=== PATIENT | male | born 1970 | race Caucasian/White ===

== ENCOUNTER 2022-06-11 08:34 | Emergency (ER) | payer OTHER ==
[2022-06-11 08:59] VITALS: BP 145/113; PULSE 106; O2SAT 97
--- NOTE | 2022-06-11 09:24 | ERPHSYRPT ---
- History of Present Illness Time Seen by Provider: 06/11/22 09:20 Source: patient Exam Limitations: no limitations Patient Subjective Stated Complaint: PT HERE FOR CONSTIPATION SINCE MONDAY Triage Nursing Assessment: PT ALERT, WALKED IN, RESP EASY, FACE MASK IN PLACE, ABD DISTENDED AND FIRM , HYPO ACTIVE BS HEARD Physician History: Patient is 51-year-old male with significant past medical history of hyperlipidemia started having a constipation problem for last 3 to 4 days has taken almost 15-20 laxative in last 3 days without any help so he came to the emergency room. He denies any nausea or vomiting. While he came to the emergency room he has urge for bowel movement but he has a very little came out. He denies any fever chills. Patient states that he never have this type of problem before. He has not taken any new medications recently. Timing/Duration: day(s) (3-4 days) Severity: moderate Allergies/Adverse Reactions: No Known Drug Allergies Allergy (Unverified 06/11/22 08:59) Home Medications: Unobtainable 06/11/22 [History] Hx Tetanus, Diphtheria Vaccination/Date Given: No Hx Influenza Vaccination/Date Given: No Hx Pneumococcal Vaccination/Date Given: No Immunizations Up to Date: Yes Travel Risk - International Travel Have you traveled outside of the country in past 3 weeks: No - Coronavirus Screening Are you exhibiting any of the following symptoms?: No Close contact with a COVID-19 positive Pt in past 14-21 Days: No - Vaccine Status Have you recieved a Covid-19 vaccination: No - Review of Systems Constitutional: No Fever, No Chills Eyes: No Symptoms Ears, Nose, & Throat: No Symptoms Respiratory: No Cough, No Dyspnea Cardiac: No Chest Pain, No Edema, No Syncope Abdominal/Gastrointestinal: Constipation, No Abdominal Pain, No Nausea, No Vomiting, No Diarrhea Genitourinary Symptoms: No Dysuria Musculoskeletal: No Back Pain, No Neck Pain Skin: No Rash Neurological: No Dizziness, No Focal Weakness, No Sensory Changes Psychological: No Symptoms Endocrine: No Symptoms All Other Systems: Reviewed and Negative - Past Medical History Pertinent Past Medical History: No Cardiac History: High Cholesterol - Past Surgical History Past Surgical History: Yes Other Surgical History: CARPAL TUNNER - Social History Smoking Status: Never smoker Exposure to second hand smoke: No Drug Use: none Patient Lives Alone: No - Nursing Vital Signs Nursing Vital Signs: Initial Vital Signs Temperature 97 F 06/11/22 08:57 Pulse Rate 106 H 06/11/22 08:57 Respiratory Rate 18 06/11/22 08:57 Blood Pressure 145/113 06/11/22 08:57 O2 Sat by Pulse Oximetry 97 06/11/22 08:57 Pain Scale Pain Intensity 10 - Physical Exam General Appearance: no apparent distress, alert Eye Exam: PERRL/EOMI, eyes nml inspection Ears, Nose, Throat Exam: normal ENT inspection, TMs normal, pharynx normal, moist mucous membranes Neck Exam: normal inspection, non-tender, supple, full range of motion Respiratory Exam: normal breath sounds, lungs clear, No respiratory distress Cardiovascular Exam: regular rate/rhythm, normal heart sounds, normal peripheral pulses Gastrointestinal/Abdomen Exam: soft, normal bowel sounds, No tenderness, No mass Back Exam: normal inspection, normal range of motion, No CVA tenderness, No vertebral tenderness Extremity Exam: normal inspection, normal range of motion, pelvis stable Neurologic Exam: alert, oriented x 3, cooperative, normal mood/affect, nml cerebellar function, nml station & gait, sensation nml, No motor deficits Skin Exam: normal color, warm, dry, No rash Lymphatic Exam: No adenopathy SpO2: 97 - Course Nursing assessment & vital signs reviewed: Yes - Radiology Exams Abdomen X-ray Interpretation: Reviewed by me Ordered Tests: Active Orders 24 hr Category Date Time Status Enema STAT Care 06/11/22 09:15 Active OBSTR/ACUTE ABDOMEN SERIES Stat Exams 06/11/22 09:16 Taken Medication Summary Generic Name Dose Route Start Last Admin Trade Name Adam PRN Reason Stop Dose Admin Polyethylene Glycol/Electrolytes 4,000 ml 06/11/22 14:00 06/11/22 11:17 Sod Sulf/Sod/Nahco3/Kcl/Peg's 4000 Ml Bottle PO 06/11/22 14:01 4,000 ml ONCE@1400 ONE Administration Medical Desision Making - Independent Historian Additional History obtained from: Family - Discussion of managment Agreed on:: Treatment plan, need for follow-up - Diagnostic Testing Radiological Interpretation: Interpreted by me, Reviewed by me - Risk of complications Low Risk: Low risk of morbidity from additional dx testing or treatment - Departure Departure Disposition: Home Clinical Impression: Constipation by delayed colonic transit Condition: Stable Critical Care Time: No Referrals: ELIZ BECERRA NP [Primary Care Provider] - Follow up/PCP as directed Instructions: Constipation, Adult (DC) Additional Instructions: Discharge/Care Plan AILYN ORTIZ was seen on 06/11/22 in the Emergency Room. The patient was counseled regarding Diagnosis,Lab results, Imaging studies, need for follow up and when to return to the Emergency Room. Prescriptions given: Discharge Note I have spoken with the patient and/or caregivers. I have explained the patient's condition, diagnosis and treatment plan based on the information available to me at this time. I have answered the patient's and/or caregiver's questions and addressed any concerns. The patient and/or caregivers have as good understanding of the patient's diagnosis, condition and treatment plan as can be expected at this point. The vital signs have been stable. The patient's condition is stable and appropriate for discharge from the emergency department. The patient will pursue further outpatient evaluation with the primary care physician or other designated or consulting physician as outlined in the discharge instructions. The patient and/or caregivers are agreeable to this plan of care and follow-up instructions have been explained in detail. The patient and/or caregivers have received these instruction. The patient/and or caregivers are aware that any significant change in condition or worsening of symptoms should prompt an immediate return to this or the closest emergency department or call 911. AILYN ORTIZ was seen on 06/11/22 n the Emergency Room. At that time you were treated for an emergent condition, during your visit Laboratory, Radiology and/or other procedures may have been ordered. It is very important that you follow-up with your Primary Care Physician ELIZ BECERRA NP within the next 24-48 hours to review your Emergency Room visit and the final results of testing that was ordered. Some test results such as Urine Cultures, Blood Cultures, and other cultures if ordered will not be finalized for 24-48 hours. If you do not have a Primary Care Provider please call the medical records department at [phone] ext [phone] to obtain a copy of your results or you may sign into our patient portal to obtain these results by visiting us @ [email or web address] and completing the following steps: 1. Click on the Patient Portal link 2. Click the Patient Self Enrollment Link to complete the enrollment form and entering your 3. Once the enrollment form is completed you will receive an email with a temporary ID and password at the email address you provided. 4. Next choose a user name and password. Your user name must be at least 4 characters long and your password must be at least 4 characters long. 5. Choose a security question from the list and provide your answer to the question. If you already have signed into the Health Portal you may access your Health Care Information 14/11 by the following steps: 1. Login to our website @ [email or web address] 2. Enter your original user name and password. FAQS The [facility] Health Portal is an online tool that contains your Lab Results, Radiology Reports, Visit History, Discharge Instructions and Health Summary Lab and Radiology Results will not be available for 72 hours on the portal. The Portal is a secure site, passwords are encryted and URLs are re-written so they cannot be copied and pasted. You and authorized family members are the only ones who can access your Portal. Also there is a timeout feature that protects your information if you leave the Portal page open. If you have technical difficulty please use the Contact Us link on the page this will allow you to submit any questions you have regarding the Portal or you may contact the Medical Record Department at [phone] ext [phone]. Take Miralax two times a day till diarrhea.
[2022-06-11] MEDS ORDERED: Golytely Solution 4000 ML PO ONE (14:00)
--- NOTE | 2022-06-11 20:16 | XRAY ---
Indication: Abdomen pain. Constipation. Comparison: None 2 view abdomen nonacute and nonobstructed. Solid organs unremarkable. Osseous structures intact with moderate/advanced degenerative changes both hips with left hip heterotopic ossification. Single frontal chest demonstrates normal heart, lungs, and bony thorax. Impression: Nonacute and nonobstructed abdomen with chronic bony findings. Normal one view chest.
== END 2022-06-11 11:32 | disposition home or self-care (01) ==
LOC: ED 08:34
DX: K59.01 Slow transit constipation (principal); E78.5 Hyperlipidemia, unspecified; Z28.310 Unvaccinated for COVID-19
CPT/HCPCS: 74022; 99283; A9270-GY

== ENCOUNTER 2022-06-12 08:25 | Inpatient (IN) | payer OTHER ==
--- NOTE | 2022-06-12 09:15 | ERPHSYRPT ---
- History of Present Illness Historian: patient, other () Patient Subjective Stated Complaint: constipation x 4 days Triage Nursing Assessment: Pt brought to the ER by his cousin, vitals wnl, rates abdominal pain as 6/10, pt was here yesterday and received an enema and a bottle of golytle and has had minimal results, states that it doesn't feel as tight but he hasn't had a solid bowel movement, pulses normal, skin n/w/d, doesn't appear to be in any distress Physician History: 51 yo wm w supra-pubic pain x3 days. Pain is sharp and worse when sitting up. He has not had a BM x 4 days and was seen in the ER w an enema. Pt has had nausea wo vomiting/diarrhea/melena/hematochezia/dysuria/hematuria/chest pain/dyspnea. He has had no abdominal surgeries. Pain is 7/10. Timing/Duration: other (4 days) Activities at Onset: rest Quality: sharpness Abdominal Pain Onset Location: suprapubic Pain Radiation: no radiation Severity of Pain-Max: severe Severity of Pain-Current: moderate Modifying Factors: Improves With: movement Associated Symptoms: denies symptoms Previous symptoms: no prior history Allergies/Adverse Reactions: No Known Drug Allergies Allergy (Verified 06/12/22 08:43) Home Medications: Unobtainable 06/11/22 [History] Hx Tetanus, Diphtheria Vaccination/Date Given: No Hx Influenza Vaccination/Date Given: No Hx Pneumococcal Vaccination/Date Given: No Travel Risk - International Travel Have you traveled outside of the country in past 3 weeks: No - Coronavirus Screening Are you exhibiting any of the following symptoms?: No - Vaccine Status Have you recieved a Covid-19 vaccination: No - Review of Systems Constitutional: No Symptoms Eyes: No Symptoms Ears, Nose, & Throat: No Symptoms Respiratory: No Symptoms Cardiac: No Symptoms Abdominal/Gastrointestinal: No Symptoms, Abdominal Pain, Constipation Genitourinary Symptoms: No Symptoms Musculoskeletal: No Symptoms Skin: No Symptoms Neurological: No Symptoms Psychological: No Symptoms Endocrine: No Symptoms Hematologic/Lymphatic: No Symptoms Immunological/Allergic: No Symptoms - Past Medical History Pertinent Past Medical History: Yes Cardiac History: High Cholesterol - Past Surgical History Past Surgical History: Yes Other Surgical History: CARPAL TUNNER - Social History Smoking Status: Never smoker Exposure to second hand smoke: No Drug Use: none Patient Lives Alone: No - Nursing Vital Signs Nursing Vital Signs: Initial Vital Signs Temperature 96.7 F 06/12/22 08:34 Pulse Rate 85 06/12/22 08:34 Blood Pressure 136/86 06/12/22 08:34 O2 Sat by Pulse Oximetry 95 06/12/22 08:34 Pain Scale Pain Intensity 6 Hypertensive - Physical Exam General Appearance: no apparent distress Eye Exam: PERRL/EOMI, eyes nml inspection Ears, Nose, Throat Exam: normal ENT inspection, TMs normal, pharynx normal, moist mucous membranes Neck Exam: normal inspection, non-tender, supple, full range of motion, No meningismus, No mass, No Brudzinski, No Kernig's Respiratory Exam: normal breath sounds, lungs clear, airway intact Cardiovascular Exam: regular rate/rhythm, normal heart sounds, normal peripheral pulses, capillary refill <2 sec, No murmur Gastrointestinal/Abdomen Exam: normal bowel sounds, tenderness (TTP supra-pubic area moderately/No guarding or rebound) Back Exam: normal inspection, normal range of motion, No CVA tenderness, No vertebral tenderness Extremity Exam: normal inspection, normal range of motion Neurologic Exam: alert, oriented x 3, cooperative, speech language assistant II-XII nml as tested, normal mood/affect, nml cerebellar function, nml station & gait, sensation nml Skin Exam: normal color, warm Lymphatic Exam: No adenopathy SpO2 Interpretation: normal SpO2: 95 O2 Delivery: Room Air - Course Nursing assessment & vital signs reviewed: Yes - CT Exams Abdomen/Pelvis CT Interpretation: Tele-radiologist Report (Appendicitis w periappendiceal abscess) Ordered Tests: Active Orders 24 hr Category Date Time Status Bedrest ROUTINE Activity 06/12/22 12:44 Active Code Status Order ROUTINE Care 06/12/22 12:43 Active IV Care Q6H Care 06/12/22 12:43 Active Intake and Output Q12H Care 06/12/22 12:[address] in Observation ROUTINE Care 06/12/22 12:43 Active Vital Signs Q4H Care 06/12/22 12:43 Active Consult Surgery ROUTINE Cons 06/12/22 12:43 Completed NPO Diet 06/12/22 12:44 Completed ABDOMEN AND PELVIS W CONTRAST [CT] Stat Exams 06/12/22 11:39 Taken AMYLASE Stat Lab 06/12/22 09:15 Completed CBC W DIFF AM.LAB Lab 06/13/22 04:00 Ordered CBC W DIFF Stat Lab 06/12/22 09:15 Completed CMP AM.LAB Lab 06/13/22 04:00 Ordered CMP Stat Lab 06/12/22 09:15 Completed CULTURE,URINE Stat Lab 06/12/22 13:46 Received LIPASE Stat Lab 06/12/22 09:15 Completed TROPONIN Q4H Lab 06/12/22 09:15 Completed UA W/RFX UR CULTURE Stat Lab 06/12/22 13:46 Completed Transfer Order Routine Transfer 06/12/22 Completed Medication Summary Generic Name Dose Route Start Last Admin Trade Name Freq PRN Reason Stop Dose Admin Acetaminophen 650 mg 06/12/22 17:14 Acetaminophen 325 Mg Tablet PO 07/12/22 17:13 Q4H PRN PRN PAIN, FEVER, HEADACHE Hydrocodone Bitart/Acetaminophen 1 tab 06/12/22 17:15 06/12/22 17:18 Hydrocodone/Apap 5/325 1 Tab Tablet PO 06/17/22 17:14 1 tab Q4H PRN PRN Administration PAIN Hydromorphone HCl 1 mg 06/12/22 12:43 Hydromorphone 1 Mg/1ml Inj 1 Mg/Ml Syringe IV 06/17/22 12:42 Q4H PRN PRN PAIN Piperacillin Sod/Tazobactam 100 mls @ 200 mls/hr 06/12/22 18:00 Sod 3.375 gm/ Sodium Chloride IV 06/15/22 17:59 Q6HT TORIN Potassium Chloride/Dextrose/Sod Cl 1,000 mls @ 100 mls/hr 06/12/22 17:30 06/12/22 17:18 D5w/0.45ns W/ 20meq Kcl 1000 Ml IV 07/12/22 17:29 100 mls/hr .Q10H TORIN Administration Cefoxitin Sodium 2 gm in 50 mls @ 100 mls/hr 06/12/22 18:00 Mefoxin 2 Gm Premix IV 06/15/22 17:59 Q6HT TORIN Morphine Sulfate 2 - 4 mg 06/12/22 17:11 Morphine Sulfate 4 Mg/Ml Injection IV 06/17/22 17:10 Q2H PRN PRN PAIN Ondansetron HCl 4 mg 06/12/22 12:43 Ondansetron Hcl 4 Mg/2 Ml Vial IV 07/12/22 12:42 Q6H PRN PRN NAUSEA/VOMITING Ondansetron HCl 4 mg 06/12/22 17:13 Ondansetron Hcl 4 Mg/2 Ml Vial IV 07/12/22 17:12 Q6H PRN PRN NAUSEA/VOMITING Pantoprazole Sodium 40 mg 06/13/22 10:00 Pantoprazole 40 Mg Vial IV 07/13/22 09:59 Q24H10 TORIN Discontinued Medications Generic Name Dose Route Start Last Admin Trade Name Freq PRN Reason Stop Dose Admin Bupivacaine HCl Confirm 06/12/22 14:00 Bupivacaine Hcl 2.5 Mg/Ml 10 Ml Administered 06/12/22 14:01 Dose 10 ml .ROUTE .STK-MED ONE Dexamethasone Sodium Phosphate Confirm 06/12/22 12:52 Dexamethasone Sod Phosphate 4 Mg/Ml Ml Administered 06/12/22 12:53 Dose 8 mg .ROUTE .STK-MED ONE Fentanyl Citrate Confirm 06/12/22 12:52 Fentanyl Citrate 250 Mcg/5 Ml Ampul Administered 06/12/22 12:53 Dose 250 mcg .ROUTE .STK-MED ONE Piperacillin Sod/Tazobactam 100 mls @ 200 mls/hr 06/12/22 12:13 06/12/22 12:20 Sod 4.5 gm/ Sodium Chloride IV 06/12/22 12:42 200 mls/hr STAT ONE Administration Sodium Chloride Confirm 06/12/22 12:18 Sodium Chloride 100ml Mini-Bag Plus Administered 06/12/22 12:19 Dose 100 mls @ ud IV .STK-MED ONE Lactated Ringer's 1,000 mls @ 100 mls/hr 06/12/22 13:00 Lactated Ringers IV 07/12/22 12:59 .Q10H TORIN Acetaminophen Confirm 06/12/22 13:57 Ofirmev Administered 06/12/22 13:58 Dose 100 mls @ ud IV .STK-MED ONE Cefoxitin Sodium Confirm 06/12/22 14:14 Mefoxin 2 Gm Premix Administered 06/12/22 14:15 Dose 2 gm in 50 mls @ ud IV .STK-MED ONE Lactated Ringer's Confirm 06/12/22 13:57 Lactated Ringers Administered 06/12/22 13:58 Dose 1,000 mls @ ud IV .STK-MED ONE Ketorolac Tromethamine Confirm 06/12/22 12:52 Ketorolac Tromethamine 30 Mg/Ml Inj Administered 06/12/22 12:53 Dose 30 mg .ROUTE .STK-MED ONE Lidocaine HCl Confirm 06/12/22 12:52 Lidocaine - Mpf 2% 5 Ml Vial Administered 06/12/22 12:53 Dose 5 ml .ROUTE .STK-MED ONE Metoclopramide HCl Confirm 06/12/22 12:53 Metoclopramide Hcl 10 Mg/2 Ml Vial Administered 06/12/22 12:54 Dose 10 mg .ROUTE .STK-MED ONE Piperacillin Sod/Tazobactam Sod Confirm 06/12/22 12:18 Piperacillin/Tazobactam Sodium 4.5 Gm Vial Administered 06/12/22 12:19 Dose 4.5 gm IV .STK-MED ONE Potassium Chloride 40 meq 06/12/22 10:08 06/12/22 10:12 Potassium Chloride Tab 10 Meq Tab PO 06/12/22 10:09 40 meq STAT ONE Administration Potassium Chloride Confirm 06/12/22 10:11 Potassium Chloride Tab 10 Meq Tab Administered 06/12/22 10:12 Dose 40 meq PO .STK-MED ONE Propofol Confirm 06/12/22 12:52 Propofol 10 Mg/Ml 20ml Vial Administered 06/12/22 12:53 Dose 200 mg IV .STK-MED ONE Rocuronium [place] Confirm 06/12/22 12:52 Rocuronium [place] 100 Mg/10ml Vial Administered 06/12/22 12:53 Dose 50 mg .ROUTE .STK-MED ONE Succinylcholine Chloride Confirm 06/12/22 14:00 Succinylcholine Chloride 200mg/10 Ml Vial Administered 06/12/22 14:01 Dose 100 mg .ROUTE .STK-MED ONE Sugammadex Sodium Confirm 06/12/22 12:52 Sugammadex Sodium 200 Mg/2 Ml Vial Administered 06/12/22 12:53 Dose 200 mg IV .STK-MED ONE Lab/Rad Data: Laboratory Result Diagrams 06/12/22 09:15 06/12/22 09:15 Laboratory Results 06/12/22 06/12/22 06/12/22 Range/Units 13:46 12:53 09:15 WBC (4.0-10.5) x10^3/uL RBC (4.1-5.6) x10^6/uL Hgb (12.5-18.0) g/dL Hct (42-50) % MCV (78-100) fL MCH (26-32) pg MCHC (32-36) g/dL RDW (11.5-14.0) % Plt Count (150-450) x10^3/uL MPV (7.5-11.0) fL Gran % (36.0-66.0) % Immature Gran % (Auto) (0.00-0.4) % Nucleat RBC Rel Count (0.00-0.1) % Eos # (Auto) (0-0.5) x10^3/uL Immature Gran # (Auto) (0.00-0.03) x10^3u/L Absolute Lymphs (auto) (1.0-4.6) x10^3/uL Absolute Monos (auto) (0.0-1.3) x10^3/uL Absolute Nucleated RBC (0.00-0.01) x10^3u/L Lymphocytes % (24.0-44.0) % Monocytes % (0.0-12.0) % Eosinophils % (0.00-5.0) % Basophils % (0.0-0.4) % Absolute Granulocytes (1.4-6.9) x10^3/uL Basophils # (0-0.4) x10^3/uL Sodium (137-145) mmol/L Potassium (3.5-5.1) mmol/L Chloride (98-107) mmol/L Carbon Dioxide (22-30) mmol/L Anion Gap (5-15) MEQ/L BUN (9-20) mg/dL Creatinine (0.66-1.25) mg/dL Estimated GFR ML/MIN Glucose (74-106) mg/dL Calcium (8.4-10.2) mg/dL Total Bilirubin (0.2-1.3) mg/dL AST (17-59) U/L ALT (0-50) U/L Alkaline Phosphatase (38-126) U/L Troponin I < 0.012 (0.000-0.034) ng/mL Serum Total Protein (6.3-8.2) g/dL Albumin (3.5-5.0) g/dL Amylase (30-110) U/L Lipase (23-300) U/L Urine Color Yellow (Yellow) Urine Appearance Clear (Clear) Urine pH 5.0 (4.6-8.0) Ur Specific [place] >=1.030 A (1.005-1.030) Urine Protein 100 A (Negative) Urine Glucose (UA) Negative (Negative) mg/dL Urine Ketones Negative (Negative) Urine Blood Moderate A (Negative) Urine Nitrite Negative (Negative) Urine Bilirubin Negative (Negative) Urine Urobilinogen 0.2 (0.2) mg/dL Ur Leukocyte Esterase Negative (Negative) U Hyaline Cast (Auto) NONE SEEN (0-2) /LPF Urine Microscopic RBC 3-5 (0-5) /HPF Urine Microscopic WBC 0-2 (0-5) /HPF Ur Epithelial Cells None Seen (None Seen) /HPF Urine Bacteria None Seen (None Seen) /HPF Urine Culture Reflexed YES (NO) Influenza Type A Ag NEGATIVE (NEGATIVE) Influenza Type B Ag NEGATIVE (NEGATIVE) RSV (PCR) NEGATIVE (Negative) SARS-CoV-2 (PCR) NEGATIVE (NEGATIVE) Slides for Path Review 06/12/22 06/12/22 Range/Units 09:15 09:15 WBC 16.7 H (4.0-10.5) x10^3/uL RBC 4.64 (4.1-5.6) x10^6/uL Hgb 14.9 (12.5-18.0) g/dL Hct 42.3 (42-50) % MCV 91.2 (78-100) fL MCH 32.1 H (26-32) pg MCHC 35.2 (32-36) g/dL RDW 12.4 (11.5-14.0) % Plt Count 262 (150-450) x10^3/uL MPV 9.4 (7.5-11.0) fL Gran % 79.3 H (36.0-66.0) % Immature Gran % (Auto) 0.6 H (0.00-0.4) % Nucleat RBC Rel Count 0.0 (0.00-0.1) % Eos # (Auto) 0.04 (0-0.5) x10^3/uL Immature Gran # (Auto) 0.10 H (0.00-0.03) x10^3u/L Absolute Lymphs (auto) 1.17 (1.0-4.6) x10^3/uL Absolute Monos (auto) 2.12 H (0.0-1.3) x10^3/uL Absolute Nucleated RBC 0.00 (0.00-0.01) x10^3u/L Lymphocytes % 7.0 L (24.0-44.0) % Monocytes % 12.7 H (0.0-12.0) % Eosinophils % 0.2 (0.00-5.0) % Basophils % 0.2 (0.0-0.4) % Absolute Granulocytes 13.20 H (1.4-6.9) x10^3/uL Basophils # 0.03 (0-0.4) x10^3/uL Sodium 133 L (137-145) mmol/L Potassium 2.9 L* (3.5-5.1) mmol/L Chloride 96 L (98-107) mmol/L Carbon Dioxide 25 (22-30) mmol/L Anion Gap 15.3 H (5-15) MEQ/L BUN 28 H (9-20) mg/dL Creatinine 1.02 (0.66-1.25) mg/dL Estimated GFR > 60.0 ML/MIN Glucose 143 H (74-106) mg/dL Calcium 9.6 (8.4-10.2) mg/dL Total Bilirubin 1.20 (0.2-1.3) mg/dL AST 27 (17-59) U/L ALT 37 (0-50) U/L Alkaline Phosphatase 74 (38-126) U/L Troponin I (0.000-0.034) ng/mL Serum Total Protein 8.3 H (6.3-8.2) g/dL Albumin 4.4 (3.5-5.0) g/dL Amylase 43 (30-110) U/L Lipase 38 (23-300) U/L Urine Color (Yellow) Urine Appearance (Clear) Urine pH (4.6-8.0) Ur Specific [place] (1.005-1.030) Urine Protein (Negative) Urine Glucose (UA) (Negative) mg/dL Urine Ketones (Negative) Urine Blood (Negative) Urine Nitrite (Negative) Urine Bilirubin (Negative) Urine Urobilinogen (0.2) mg/dL Ur Leukocyte Esterase (Negative) U Hyaline Cast (Auto) (0-2) /LPF Urine Microscopic RBC (0-5) /HPF Urine Microscopic WBC (0-5) /HPF Ur Epithelial Cells (None Seen) /HPF Urine Bacteria (None Seen) /HPF Urine Culture Reflexed (NO) Influenza Type A Ag (NEGATIVE) Influenza Type B Ag (NEGATIVE) RSV (PCR) (Negative) SARS-CoV-2 (PCR) (NEGATIVE) Slides for Path Review YES - Progress Progress Note: 06/12/22 12:16 Pt refused all pain meds Nursing note and vital signs reviewed No food or housing insecurities notes Pt is a full code All lab and CT results reviewed and shared w pt Zosyn 4.5gms IV 06/12/22 12:48 Dr. Siddharth Laird to take to surgery, wants Dr. Munoz to admit. Dr. Munoz ok w admit Counseled pt/family regarding: lab results, diagnosis, rad results - Departure Departure Disposition: Observation Clinical Impression: Appendicitis with peritoneal abscess Condition: Stable Critical Care Time: Yes Critical Care Time(excluding separately billable procedures): Critical 30-74 mins
[2022-06-12 09:25] LABS: BASOPHIL % 0.2 % (0.0-0.4); Basophil (Absolute #) 0.03 x10^3/uL (0-0.4); Eosinophil % 0.2 % (0.00-5.0); Eosinophil (Absolute #) 0.04 x10^3/uL (0-0.5); Hematocrit 42.3 % (42-50); Hemoglobin 14.9 g/dL (12.5-18.0); IMMATURE GRAN % 0.6 % (0.00-0.4); Lymphocyte (Absolute #) 1.17 x10^3/uL (1.0-4.6); Mean Cell Volume 91.2 fL (78-100); Mean Corpuscular Hemoglobin 32.1 pg (26-32); Mean Corpuscular Hgb Concent. 35.2 g/dL (32-36); Mean Platelet Volume 9.4 fL (7.5-11.0); Monocyte (Absolute #) 2.12 x10^3/uL (0.0-1.3); Monocytes % 12.7 % (0.0-12.0); Neutrophil % 79.3 % (36.0-66.0); Platelet Count 262 x10^3/uL (150-450); Red Blood Count 4.64 x10^6/uL (4.1-5.6); Red Cell Distribution Width 12.4 % (11.5-14.0); White Blood Count 16.7 x10^3/uL (4.0-10.5)
[2022-06-12 10:01] LABS: ALBUMIN 4.4 g/dL (3.5-5.0); ALKALINE PHOSPHATASE 74 U/L (38-126); AMYLASE 43 U/L (30-110); ANION GAP 15.3 MEQ/L (5-15); BLOOD UREA NITROGEN 28 mg/dL (9-20); CHLORIDE 96 mmol/L (98-107); Calcium 9.6 mg/dL (8.4-10.2); Carbon Dioxide 25 mmol/L (22-30); Creatinine 1 1.02 mg/dL (0.66-1.25); EST GLOMERULAR FILTRATION RATE > 60.0 ML/MIN; Glucose 143 mg/dL (74-106); LIPASE 38 U/L (23-300); SGOT/AST 27 U/L (17-59); SGPT/ALT 37 U/L (0-50); SODIUM 133 mmol/L (137-145); Total Protein 8.3 g/dL (6.3-8.2)
[2022-06-12 10:03] LABS: Potassium 2.9 mmol/L (3.5-5.1)
[2022-06-12] MEDS ORDERED: Klor Con PO ONE ×2 (10:08→10:11)
[2022-06-12] MEDS ORDERED: PIPERACILLIN/TAZOBACTAM 4.5 GM in Sodium Chloride 100ML MINI-BAG PLUS 100 ML IV ONE (12:13)
[2022-06-12] MEDS ORDERED: Sodium Chloride 100ML MINI-BAG PLUS 100 ML IV ONE ×3 (12:18→23:46)
[2022-06-12] MEDS ORDERED: PIPERACILLIN/TAZOBACTAM IV ONE ×4 (12:18→23:45)
[2022-06-12] MEDS ORDERED: Zofran 4 MG/2 ML VIAL IV PRN (12:43)
[2022-06-12] MEDS ORDERED: Hydromorphone 1 mg/ml Injection IV PRN (12:43)
[2022-06-12] MEDS ORDERED: Zemuron 100 MG/10 ML ONE (12:52)
[2022-06-12] MEDS ORDERED: DIPRIVAN 200 MG/20 ML IV ONE (12:52)
[2022-06-12] MEDS ORDERED: Xylocaine-Mpf 2% 5 Ml Vial ONE (12:52)
[2022-06-12] MEDS ORDERED: BRIDION 200MG/2ML IV ONE (12:52)
[2022-06-12] MEDS ORDERED: Decadron 4 MG INJ ONE (12:52)
[2022-06-12] MEDS ORDERED: SUBLIMAZE 250 MCG/5 ML ONE (12:52)
[2022-06-12] MEDS ORDERED: TORAdol 30 mg Injection ONE (12:52)
[2022-06-12] MEDS ORDERED: Reglan 10 MG/2 ML ONE (12:53)
[2022-06-12] MEDS ORDERED: Lactated Ringers 1,000 ML IV SCH (13:00)
[2022-06-12 13:37] LABS: INFLUENZA A NEGATIVE (NEGATIVE); INFLUENZA B NEGATIVE (NEGATIVE); RESPIRATORY SYNCTIAL VIRUS NEGATIVE (Negative); SARS-CoV-2 Xpert Express NEGATIVE (NEGATIVE)
[2022-06-12] MEDS ORDERED: Lactated Ringers 1,000 ML IV ONE (13:57)
[2022-06-12] MEDS ORDERED: OFIRMEV 100 ML IV ONE (13:57)
[2022-06-12] MEDS ORDERED: Sensorcaine 0.25% 10 ML ONE (14:00)
[2022-06-12] MEDS ORDERED: Quelicin Fliptop 200 MG/10 ML ONE (14:00)
[2022-06-12] MEDS ORDERED: MEFOXIN 2 GM PREMIX** 2 GM/50 ML ML IV ONE (14:14)
[2022-06-12 15:11] LABS: Slide Review 1 YES
[2022-06-12 15:20] LABS: ADD URINE CULTURE? YES (NO); Appearance Clear (Clear); Bacteria None Seen /HPF (None Seen); Bilirubin Negative (Negative); Blood Moderate (Negative); Epithelial Cells None Seen /HPF (None Seen); Glucose, Urine Negative (Negative); Hyaline Casts NONE SEEN /LPF (0-2); Ketones Negative (Negative); Leukocyte Esterase Negative (Negative); Nitrite Negative (Negative); Protein,Urine Dip 100 (Negative); Specific Gravity >=1.030 (1.005-1.030); Urobilinogen 0.2 mg/dL (0.2); WBC 0-2 /HPF (0-5)
--- NOTE | 2022-06-12 17:08 | PCM.HP ---
History of Present Illness - Chief Complaint Chief Complaint: POST APPENDECTOMY History of Present Illness: is a 51 year old male at the [facility] who presented to ER with constipation and low abdominal pain. ER evaluation revealed appendicitis and patient was taken to OR by Dr Lorne Laird. Post Op Dg - appendicitis with peritoneal abscess. Patient is stable post op admitted to [facility]. - Review of Systems Eyes: No Symptoms Ears, Nose, & Throat: No Symptoms Respiratory: No Symptoms Cardiac: No Symptoms Abdominal/Gastrointestinal: Abdominal Pain, Constipation Genitourinary Symptoms: No Symptoms Musculoskeletal: No Symptoms Skin: No Symptoms Neurological: No Symptoms Psychological: No Symptoms Endocrine: No Symptoms Hematologic/Lymphatic: No Symptoms Medications & Allergies Home Medications: Home Medication List Alfuzosin HCl [Alfuzosin HCl ER] 10 mg PO DINNER 06/12/22 [History Confirmed 06/12/22] Fenofibrate Nanocrystallized [Fenofibrate] 145 mg PO DAILY 06/12/22 [History Confirmed 06/12/22] Gabapentin [Neurontin ] 300 mg PO HS 06/12/22 [History Confirmed 06/12/22] Meloxicam 15 mg [Meloxicam 15 MG] 15 mg PO DAILY 06/12/22 [History Confirmed 06/12/22] [place]-3S/Dha/Epa/Fish Oil [Fish Oil Dr 1,000 mg Softgel] 1 each PO DAILY 06/12/22 [History Confirmed 06/12/22] Acetaminophen 325 mg [Tylenol 325 mg] 650 mg PO Q4H PRN PRN tablet 06/17/22 [Rx] Allergies/Adverse Reactions: Allergies Allergy/AdvReac Type Severity Reaction Status Date / Time No Known Drug Allergies Allergy Verified 06/12/22 08:43 - Past Medical History Past Medical History: Yes Neurological History: No Pertinent History ENT History: No Pertinent History Cardiac History: High Cholesterol Respiratory History: No Pertinent History Endocrine Medical History: No Pertinent History Musculoskelatal History: No Pertinent History GI Medical History: No Pertinent History History: No Pertinent History Pyscho-Social History: No Pertinent History Male Reproductive Disorders: Prostate Problems - Past Surgical History Past Surgical History: Yes Neuro Surgical History: No Pertinent History Cardiac History: No Pertinent History Respiratory Surgery: No Pertinent History GI Surgical History: No Pertinent History Genitourinary Surgical Hx: No Pertinent History Musculskeletal Surgical Hx: No Pertinent History Male Surgical History: No Pertinent History Other Surgical History: CARPAL TUNNEL - Social History Smoking Status: Never smoker Exposure to second hand smoke: No Alcohol: Occasionally Drug Use: none - Physical Exam Vital Signs: Vital Signs - 24 hr Temp Pulse Resp BP Pulse Ox 06/12/22 15:46 97.7 F 69 18 149/80 92 L 06/12/22 12:49 95 06/12/22 12:23 96.7 F 90 133/92 97 06/12/22 12:10 84 133/92 97 06/12/22 10:06 85 134/89 95 06/12/22 08:34 96.7 F 85 136/86 95 General Appearance: no apparent distress (post op pain controlled) Neurologic Exam: alert, oriented x 3, cooperative, normal mood/affect Eye Exam: eyes nml inspection Ears, Nose, Throat Exam: normal ENT inspection Neck Exam: normal inspection Respiratory Exam: normal breath sounds Cardiovascular Exam: regular rate/rhythm Gastrointestinal/Abdomen Exam: other ( post op dressing dry ,drain in place sanguinous fluid) Results - Labs Lab/Micro Results: Lab Results-Last 24 Hours 06/12/22 06/12/22 06/12/22 Range/Units 09:15 09:15 09:15 WBC 16.7 H (4.0-10.5) x10^3/uL RBC 4.64 (4.1-5.6) x10^6/uL Hgb 14.9 (12.5-18.0) g/dL Hct 42.3 (42-50) % MCV 91.2 (78-100) fL MCH 32.1 H (26-32) pg MCHC 35.2 (32-36) g/dL RDW 12.4 (11.5-14.0) % Plt Count 262 (150-450) x10^3/uL MPV 9.4 (7.5-11.0) fL Gran % 79.3 H (36.0-66.0) % Immature Gran % (Auto) 0.6 H (0.00-0.4) % Nucleat RBC Rel Count 0.0 (0.00-0.1) % Eos # (Auto) 0.04 (0-0.5) x10^3/uL Immature Gran # (Auto) 0.10 H (0.00-0.03) x10^3u/L Absolute Lymphs (auto) 1.17 (1.0-4.6) x10^3/uL Absolute Monos (auto) 2.12 H (0.0-1.3) x10^3/uL Absolute Nucleated RBC 0.00 (0.00-0.01) x10^3u/L Lymphocytes % 7.0 L (24.0-44.0) % Monocytes % 12.7 H (0.0-12.0) % Eosinophils % 0.2 (0.00-5.0) % Basophils % 0.2 (0.0-0.4) % Absolute Granulocytes 13.20 H (1.4-6.9) x10^3/uL Basophils # 0.03 (0-0.4) x10^3/uL Sodium 133 L (137-145) mmol/L Potassium 2.9 L* (3.5-5.1) mmol/L Chloride 96 L (98-107) mmol/L Carbon Dioxide 25 (22-30) mmol/L Anion Gap 15.3 H (5-15) MEQ/L BUN 28 H (9-20) mg/dL Creatinine 1.02 (0.66-1.25) mg/dL Estimated GFR > 60.0 ML/MIN Glucose 143 H (74-106) mg/dL Calcium 9.6 (8.4-10.2) mg/dL Total Bilirubin 1.20 (0.2-1.3) mg/dL AST 27 (17-59) U/L ALT 37 (0-50) U/L Alkaline Phosphatase 74 (38-126) U/L Troponin I < 0.012 (0.000-0.034) ng/mL Serum Total Protein 8.3 H (6.3-8.2) g/dL Albumin 4.4 (3.5-5.0) g/dL Amylase 43 (30-110) U/L Lipase 38 (23-300) U/L Urine Color (Yellow) Urine Appearance (Clear) Urine pH (4.6-8.0) Ur Specific Woodman (1.005-1.030) Urine Protein (Negative) Urine Glucose (UA) (Negative) mg/dL Urine Ketones (Negative) Urine Blood (Negative) Urine Nitrite (Negative) Urine Bilirubin (Negative) Urine Urobilinogen (0.2) mg/dL Ur Leukocyte Esterase (Negative) U Hyaline Cast (Auto) (0-2) /LPF Urine Microscopic RBC (0-5) /HPF Urine Microscopic WBC (0-5) /HPF Ur Epithelial Cells (None Seen) /HPF Urine Bacteria (None Seen) /HPF Urine Culture Reflexed (NO) Influenza Type A Ag (NEGATIVE) Influenza Type B Ag (NEGATIVE) RSV (PCR) (Negative) SARS-CoV-2 (PCR) (NEGATIVE) Slides for Path Review YES 06/12/22 06/12/22 Range/Units 12:53 13:46 WBC (4.0-10.5) x10^3/uL RBC (4.1-5.6) x10^6/uL Hgb (12.5-18.0) g/dL Hct (42-50) % MCV (78-100) fL MCH (26-32) pg MCHC (32-36) g/dL RDW (11.5-14.0) % Plt Count (150-450) x10^3/uL MPV (7.5-11.0) fL Gran % (36.0-66.0) % Immature Gran % (Auto) (0.00-0.4) % Nucleat RBC Rel Count (0.00-0.1) % Eos # (Auto) (0-0.5) x10^3/uL Immature Gran # (Auto) (0.00-0.03) x10^3u/L Absolute Lymphs (auto) (1.0-4.6) x10^3/uL Absolute Monos (auto) (0.0-1.3) x10^3/uL Absolute Nucleated RBC (0.00-0.01) x10^3u/L Lymphocytes % (24.0-44.0) % Monocytes % (0.0-12.0) % Eosinophils % (0.00-5.0) % Basophils % (0.0-0.4) % Absolute Granulocytes (1.4-6.9) x10^3/uL Basophils # (0-0.4) x10^3/uL Sodium (137-145) mmol/L Potassium (3.5-5.1) mmol/L Chloride (98-107) mmol/L Carbon Dioxide (22-30) mmol/L Anion Gap (5-15) MEQ/L BUN (9-20) mg/dL Creatinine (0.66-1.25) mg/dL Estimated GFR ML/MIN Glucose (74-106) mg/dL Calcium (8.4-10.2) mg/dL Total Bilirubin (0.2-1.3) mg/dL AST (17-59) U/L ALT (0-50) U/L Alkaline Phosphatase (38-126) U/L Troponin I (0.000-0.034) ng/mL Serum Total Protein (6.3-8.2) g/dL Albumin (3.5-5.0) g/dL Amylase (30-110) U/L Lipase (23-300) U/L Urine Color Yellow (Yellow) Urine Appearance Clear (Clear) Urine pH 5.0 (4.6-8.0) Ur Specific Woodman >=1.030 A (1.005-1.030) Urine Protein 100 A (Negative) Urine Glucose (UA) Negative (Negative) mg/dL Urine Ketones Negative (Negative) Urine Blood Moderate A (Negative) Urine Nitrite Negative (Negative) Urine Bilirubin Negative (Negative) Urine Urobilinogen 0.2 (0.2) mg/dL Ur Leukocyte Esterase Negative (Negative) U Hyaline Cast (Auto) NONE SEEN (0-2) /LPF Urine Microscopic RBC 3-5 (0-5) /HPF Urine Microscopic WBC 0-2 (0-5) /HPF Ur Epithelial Cells None Seen (None Seen) /HPF Urine Bacteria None Seen (None Seen) /HPF Urine Culture Reflexed YES (NO) Influenza Type A Ag NEGATIVE (NEGATIVE) Influenza Type B Ag NEGATIVE (NEGATIVE) RSV (PCR) NEGATIVE (Negative) SARS-CoV-2 (PCR) NEGATIVE (NEGATIVE) Slides for Path Review - Radiology Impressions Radiology Exams & Impressions: Radiology Procedures Category Date Time Status ABDOMEN AND PELVIS W CONTRAST [CT] Stat Exams 06/12/22 11:39 Taken - Other Procedures and Tests Respiratory Therapy 06/12/22 15:30 Incentive Spirometry UD Assessment/Plan (1) Appendicitis with peritoneal abscess Status: Resolved Assessment & Plan: post op- stable Code(s): K35.33 - ACUTE APPENDICITIS WITH PERF AND LOC PERITONITIS, WITH ABSCS
[2022-06-12] MEDS ORDERED: MORPHINE SULFATE 4 MG INJ IV PRN (17:11)
[2022-06-12] MEDS: NORCO 5/325 MG PO PRN ×2 (17:18→21:39)
[2022-06-12] MEDS: D5W/0.45NS W/ 20mEq KCl 1000 ML 1,000 ML IV SCH (17:18)
[2022-06-12] MEDS: PIPERACILLIN/TAZOBACTAM 3.375 GM in Sodium Chloride 100ML MINI-BAG PLUS 100 ML IV SCH (18:19)
[2022-06-12] MEDS: MEFOXIN 2 GM PREMIX** 2 GM/50 ML ML IV SCH ×2 (19:19→23:50)
--- NOTE | 2022-06-12 19:20 | XRAY ---
Indication: Constipation. Multiple contiguous axial images obtained through the abdomen and pelvis using 80 cc Isovue 370 contrast. Comparison: None Lung bases demonstrates mild bibasilar subsegmental atelectasis/scarring. Heart not enlarged. Noncontrasted stomach and bowel loops appear nonobstructed. Appendix is prominent up to 1.2 cm with periappendiceal stranding favoring acute appendicitis. Small 4.4 x 4.6 cm periappendiceal abscess with tiny free air. Diffuse fatty liver and a few tiny left renal cysts, largest 7 mm. Remaining liver, gallbladder, pancreas, spleen, adrenal glands, kidneys, ureters, bladder, and aorta are unremarkable. No pathologic retroperitoneal lymphadenopathy. Osseous structures intact. Impression: 1. CT findings favor acute appendicitis with periappendiceal abscess and free air. 2. Incidental fatty liver and left renal cysts. Comment: Preliminary interpretation made by [facility]. No critical discrepancy.
[2022-06-12] MEDS ORDERED: NEURONTIN PO ONE (22:00)
[2022-06-13] MEDS: PIPERACILLIN/TAZOBACTAM 3.375 GM in Sodium Chloride 100ML MINI-BAG PLUS 100 ML IV SCH ×2 (00:24→05:47)
[2022-06-13 04:58] LABS: Hematocrit 40.1 % (42-50); Hemoglobin 13.9 g/dL (12.5-18.0); Mean Cell Volume 92.4 fL (78-100); Mean Corpuscular Hgb Concent. 34.7 g/dL (32-36); Mean Platelet Volume 9.9 fL (7.5-11.0); Platelet Count 252 x10^3/uL (150-450); Red Blood Count 4.34 x10^6/uL (4.1-5.6); Red Cell Distribution Width 12.9 % (11.5-14.0); White Blood Count 13.9 x10^3/uL (4.0-10.5)
[2022-06-13] MEDS ORDERED: PIPERACILLIN/TAZOBACTAM IV ONE (05:06)
[2022-06-13] MEDS ORDERED: Sodium Chloride 100ML MINI-BAG PLUS 100 ML IV ONE (05:07)
[2022-06-13] MEDS: MEFOXIN 2 GM PREMIX** 2 GM/50 ML ML IV SCH ×3 (05:12→18:49)
[2022-06-13] MEDS ORDERED: NORCO 5/325 MG ONE (05:27)
[2022-06-13] MEDS ORDERED: D5W/0.45NS W/ 20mEq KCl 1000 ML 1,000 ML IV ONE (05:29)
[2022-06-13] MEDS: D5W/0.45NS W/ 20mEq KCl 1000 ML 1,000 ML IV SCH ×2 (05:46→16:42)
[2022-06-13] MEDS: NORCO 5/325 MG PO PRN ×4 (05:47→19:48)
[2022-06-13 06:13] LABS: ANION GAP 13.2 MEQ/L (5-15); BLOOD UREA NITROGEN 26 mg/dL (9-20); CHLORIDE 97 mmol/L (98-107); Calcium 8.7 mg/dL (8.4-10.2); Carbon Dioxide 26 mmol/L (22-30); Creatinine 1 0.81 mg/dL (0.66-1.25); EST GLOMERULAR FILTRATION RATE > 60.0 ML/MIN; Glucose 179 mg/dL (74-106); Potassium 3.6 mmol/L (3.5-5.1); SODIUM 133 mmol/L (137-145)
[2022-06-13] MEDS: ENOXAPARIN SODIUM SQ SCH (09:04)
[2022-06-13] MEDS ORDERED: PHARMACY DOSING REQUEST MC ONE (09:41)
[2022-06-13] MEDS ORDERED: PROTONIX 40 MG IV IV SCH (10:00)
--- NOTE | 2022-06-13 10:57 | XRAY ---
Indication: Abdomen pain. Ruptured appendix. Comparison: None KUB demonstrates right lower quadrant VASILE drain. Mild air distended bowel loops throughout presumed postoperative ileus. Solid organs unremarkable. Osseous structures intact with moderate right and advanced left hip degenerative changes.
[2022-06-13] MEDS: Flomax 0.4 MG PO SCH (11:08)
--- NOTE | 2022-06-13 15:17 | OP ---
SURGERY DATE/TIME: 06/12/2022 9866 PREOPERATIVE DIAGNOSIS: Acute appendicitis possible rupture. POSTOPERATIVE DIAGNOSIS: Ruptured appendix with abscess. PROCEDURES: 1) Laparoscopic appendectomy. 2) Laparoscopic evacuation of small pelvic sidewall abscess. SURGEON: Lorne Laird M.D. ANESTHESIA: General. COMPLICATIONS: None. CONDITION: Stable. INDICATION: The patient presents with four day history of appendicitis. DESCRIPTION OF PROCEDURE: Taken to surgery. General anesthetic. Routine prep and drape. Veress needle inserted. Opening pressure 1, insufflating pressure 14. Two - 5's and a 12. The appendix was matted down into the abscess which is into the wall of the right pelvis this was evacuated. It was suctioned and irrigated. There was a 1.5 inch end of the appendix. There was about a mid-section of 1.5 inch that was totally and gangrenous, noted the base about 0.75 cm. The base was stapled off. It was well sealed off. Base of the appendix is taken. Appendix is placed in a bag and removed. The field was generously irrigated. A 10 VASILE was placed in the right gutter in the pelvis this was secured with 2-0 PDS. The field was dry. CO2 exsufflated. Skin closed with 4-0 Vicryl and Steri-Strips. The patient tolerated the procedure satisfactorily.
[2022-06-13] MEDS: Mylicon 80MG PO PRN (15:46)
[2022-06-13] MEDS ORDERED: PATIENT OWN MEDICATION PO SCH (17:00)
[2022-06-13] MEDS ORDERED: NON-FORMULARY ITEM (Alfuzosin Hcl [Alfuzosin Hcl Er] 10 MG Tab.Er.24h) PO SCH (17:00)
[2022-06-13] MEDS ORDERED: NON-FORMULARY ITEM PO SCH (17:00)
[2022-06-13] MEDS: NEURONTIN PO SCH (21:02)
[2022-06-14] MEDS: Zofran 4 MG/2 ML VIAL IV PRN ×2 (02:00→11:36)
[2022-06-14] MEDS: D5W/0.45NS W/ 20mEq KCl 1000 ML 1,000 ML IV SCH ×3 (02:14→22:40)
[2022-06-14 04:57] LABS: Absolute Neutrophil Ct (ANC) 10.77 x10^3/uL (1.4-6.9); BASOPHIL % 0.3 % (0.0-0.4); Basophil (Absolute #) 0.04 x10^3/uL (0-0.4); Eosinophil % 0.6 % (0.00-5.0); Eosinophil (Absolute #) 0.08 x10^3/uL (0-0.5); Hematocrit 40.1 % (42-50); Hemoglobin 13.7 g/dL (12.5-18.0); IMMATURE GRAN # 0.14 x10^3u/L (0.00-0.03); IMMATURE GRAN % 1.1 % (0.00-0.4); Lymphocyte (Absolute #) 0.87 x10^3/uL (1.0-4.6); Lymphocytes % 6.7 % (24.0-44.0); Mean Cell Volume 93.5 fL (78-100); Mean Corpuscular Hemoglobin 31.9 pg (26-32); Mean Corpuscular Hgb Concent. 34.2 g/dL (32-36); Mean Platelet Volume 9.5 fL (7.5-11.0); Monocyte (Absolute #) 1.14 x10^3/uL (0.0-1.3); Monocytes % 8.7 % (0.0-12.0); Neutrophil % 82.6 % (36.0-66.0); Platelet Count 322 x10^3/uL (150-450); Red Blood Count 4.29 x10^6/uL (4.1-5.6); Red Cell Distribution Width 12.8 % (11.5-14.0)
[2022-06-14 05:13] LABS: ALBUMIN 3.6 g/dL (3.5-5.0); ALKALINE PHOSPHATASE 68 U/L (38-126); BLOOD UREA NITROGEN 20 mg/dL (9-20); CHLORIDE 97 mmol/L (98-107); Calcium 8.4 mg/dL (8.4-10.2); Carbon Dioxide 28 mmol/L (22-30); Creatinine 1 0.64 mg/dL (0.66-1.25); EST GLOMERULAR FILTRATION RATE > 60.0 ML/MIN; Glucose 168 mg/dL (74-106); Potassium 3.3 mmol/L (3.5-5.1); SGOT/AST 29 U/L (17-59); SGPT/ALT 33 U/L (0-50)
[2022-06-14 05:14] LABS: SODIUM 132 mmol/L (137-145)
[2022-06-14 05:19] LABS: ANION GAP 10.3 MEQ/L (5-15)
[2022-06-14] MEDS ORDERED: MEFOXIN 2 GM PREMIX** 2 GM/50 ML ML IV ONE (09:20)
[2022-06-14] MEDS: ENOXAPARIN SODIUM SQ SCH (09:32)
[2022-06-14] MEDS: Flomax 0.4 MG PO SCH (09:32)
[2022-06-14] MEDS: TYLENOL 325 MG PO PRN (10:05)
[2022-06-14] MEDS: Mylicon 80MG PO PRN ×3 (10:05→22:40)
[2022-06-14] MEDS: POTASSIUM CHLORIDE 20 mEq IN WATER 100ML 20 MEQ/100 ML BAG IV SCH ×2 (10:11→12:35)
--- NOTE | 2022-06-14 13:13 | PCM.NOTE ---
Date and Time: 06/13/22 Subjective Assessment: Post op doing well tolerating clear liquid diet,has not had a BM.WBC elevated with left shift Objective Exam General Appearance: no apparent distress Neurologic Exam: alert, oriented x 3, cooperative, normal mood/affect Skin Exam: normal color, warm, dry Wound Assessment: Skin/Wound Assessment Wound/Incision Assessment Start: 06/12/22 15:47 Text: Status: Active Freq: Q6H Protocol: Document 06/14/22 08:00 (Rec: 06/14/22 09:56 [id number]) Wound/Incision Assessment Abdomen Wound Assessment Shift Assessment Wound Type Puncture Wound Stage Non Pressure Wound Dressing Status Dry & Intact Comment 3 PUNTURE SITES AND VASILE DRAIN Right Upper Abdomen Drain Type VASILE drain Drainage Description Serosanguineous,Yellow Odor None/Absent Drainage Amount (ml) 90 Respiratory Exam: normal breath sounds Cardiovascular Exam: regular rate/rhythm Gastrointestinal/Abdomen Exam: distention, other (post op dressing dry,drain in place sanguineous fluid) Extremity Exam: normal inspection OBJECTIVE DATA Vital Signs: Vital Signs - 24 hr Temp Pulse Resp BP Pulse Ox 06/14/22 11:51 97.3 F 82 18 140/88 94 L 06/14/22 08:00 18 06/14/22 07:09 97.8 F 74 18 130/84 95 06/14/22 04:00 97.7 F 72 16 140/90 95 06/13/22 23:02 97.7 F 84 16 135/81 92 L 06/13/22 19:34 97.5 F 75 16 132/78 92 L 06/13/22 16:00 97.8 F 81 16 141/78 94 L Pain Assessment - Last Documented Pain Intensity 0 Pain Scale Used 0-10 Pain Scale Intake and Output: Intake & Output 06/12/22 06/13/22 06/14/22 06/15/22 11:59 11:59 11:59 11:59 Intake Total 2926 3093 Output Total 1060 1340 Balance 1866 1753 Weight 113.398 kg 106.5 kg Lab Results: Lab Results-Last 24 Hours 06/14/22 06/14/22 Range/Units 04:17 04:17 WBC 13.0 H (4.0-10.5) x10^3/uL RBC 4.29 (4.1-5.6) x10^6/uL Hgb 13.7 (12.5-18.0) g/dL Hct 40.1 L (42-50) % MCV 93.5 (78-100) fL MCH 31.9 (26-32) pg MCHC 34.2 (32-36) g/dL RDW 12.8 (11.5-14.0) % Plt Count 322 (150-450) x10^3/uL MPV 9.5 (7.5-11.0) fL Gran % 82.6 H (36.0-66.0) % Immature Gran % (Auto) 1.1 H (0.00-0.4) % Nucleat RBC Rel Count 0.0 (0.00-0.1) % Eos # (Auto) 0.08 (0-0.5) x10^3/uL Immature Gran # (Auto) 0.14 H (0.00-0.03) x10^3u/L Absolute Lymphs (auto) 0.87 L (1.0-4.6) x10^3/uL Absolute Monos (auto) 1.14 (0.0-1.3) x10^3/uL Absolute Nucleated RBC 0.00 (0.00-0.01) x10^3u/L Lymphocytes % 6.7 L (24.0-44.0) % Monocytes % 8.7 (0.0-12.0) % Eosinophils % 0.6 (0.00-5.0) % Basophils % 0.3 (0.0-0.4) % Absolute Granulocytes 10.77 H (1.4-6.9) x10^3/uL Basophils # 0.04 (0-0.4) x10^3/uL Sodium 132 L (137-145) mmol/L Potassium 3.3 L (3.5-5.1) mmol/L Chloride 97 L (98-107) mmol/L Carbon Dioxide 28 (22-30) mmol/L Anion Gap 10.3 (5-15) MEQ/L BUN 20 (9-20) mg/dL Creatinine 0.64 L (0.66-1.25) mg/dL Estimated GFR > 60.0 ML/MIN Glucose 168 H (74-106) mg/dL Calcium 8.4 (8.4-10.2) mg/dL Total Bilirubin 0.50 (0.2-1.3) mg/dL AST 29 (17-59) U/L ALT 33 (0-50) U/L Alkaline Phosphatase 68 (38-126) U/L Serum Total Protein 7.0 (6.3-8.2) g/dL Albumin 3.6 (3.5-5.0) g/dL Radiology Exams: Radiology Procedures Category Date Time Status KUB Urgent Exams 06/13/22 09:45 Completed Multi-Disciplinary Progress Notes: Multi-Disciplinary Progress Notes 06/14/22 10:39 Case Management Note by Vianey Suggs Spoke with pt and pt still plans to return home and sister will assist at [place]. No new needs identified. Initialized on 06/14/22 10:39 - END OF NOTE Assessment/Plan (1) Appendicitis with peritoneal abscess Status: Resolved Assessment & Plan: post op ,tolerating clear liquids,restart IV antibiotic Code(s): K35.33 - ACUTE APPENDICITIS WITH PERF AND LOC PERITONITIS, WITH ABSCS
--- NOTE | 2022-06-14 13:16 | PCM.NOTE ---
Date and Time: 06/14/22 1313 Subjective Assessment: Patient has been vomiting ,c/o nausea,still on clear liquid diet.BM during the night watery brown stool large volume. IV antibiotics restarted. Patient VSS Objective Exam General Appearance: mild distress (nauseated) Neurologic Exam: alert, oriented x 3, cooperative, normal mood/affect Skin Exam: warm, dry Wound Assessment: Skin/Wound Assessment Wound/Incision Assessment Start: 06/12/22 15:47 Text: Status: Active Freq: Q6H Protocol: Document 06/14/22 08:00 (Rec: 06/14/22 09:56 [id number]) Wound/Incision Assessment Abdomen Wound Assessment Shift Assessment Wound Type Puncture Wound Stage Non Pressure Wound Dressing Status Dry & Intact Comment 3 PUNTURE SITES AND VASILE DRAIN Right Upper Abdomen Drain Type VASILE drain Drainage Description Serosanguineous,Yellow Odor None/Absent Drainage Amount (ml) 90 Respiratory Exam: normal breath sounds Cardiovascular Exam: regular rate/rhythm Gastrointestinal/Abdomen Exam: distention (decresed BS) Extremity Exam: normal inspection OBJECTIVE DATA Vital Signs: Vital Signs - 24 hr Temp Pulse Resp BP Pulse Ox 06/14/22 11:51 97.3 F 82 18 140/88 94 L 06/14/22 08:00 18 06/14/22 07:09 97.8 F 74 18 130/84 95 06/14/22 04:00 97.7 F 72 16 140/90 95 06/13/22 23:02 97.7 F 84 16 135/81 92 L 06/13/22 19:34 97.5 F 75 16 132/78 92 L 06/13/22 16:00 97.8 F 81 16 141/78 94 L Pain Assessment - Last Documented Pain Intensity 0 Pain Scale Used 0-10 Pain Scale Intake and Output: Intake & Output 06/12/22 06/13/22 06/14/22 06/15/22 11:59 11:59 11:59 11:59 Intake Total 2926 3093 Output Total 1060 1340 Balance 1866 1753 Weight 113.398 kg 106.5 kg Lab Results: Lab Results-Last 24 Hours 06/14/22 06/14/22 Range/Units 04:17 04:17 WBC 13.0 H (4.0-10.5) x10^3/uL RBC 4.29 (4.1-5.6) x10^6/uL Hgb 13.7 (12.5-18.0) g/dL Hct 40.1 L (42-50) % MCV 93.5 (78-100) fL MCH 31.9 (26-32) pg MCHC 34.2 (32-36) g/dL RDW 12.8 (11.5-14.0) % Plt Count 322 (150-450) x10^3/uL MPV 9.5 (7.5-11.0) fL Gran % 82.6 H (36.0-66.0) % Immature Gran % (Auto) 1.1 H (0.00-0.4) % Nucleat RBC Rel Count 0.0 (0.00-0.1) % Eos # (Auto) 0.08 (0-0.5) x10^3/uL Immature Gran # (Auto) 0.14 H (0.00-0.03) x10^3u/L Absolute Lymphs (auto) 0.87 L (1.0-4.6) x10^3/uL Absolute Monos (auto) 1.14 (0.0-1.3) x10^3/uL Absolute Nucleated RBC 0.00 (0.00-0.01) x10^3u/L Lymphocytes % 6.7 L (24.0-44.0) % Monocytes % 8.7 (0.0-12.0) % Eosinophils % 0.6 (0.00-5.0) % Basophils % 0.3 (0.0-0.4) % Absolute Granulocytes 10.77 H (1.4-6.9) x10^3/uL Basophils # 0.04 (0-0.4) x10^3/uL Sodium 132 L (137-145) mmol/L Potassium 3.3 L (3.5-5.1) mmol/L Chloride 97 L (98-107) mmol/L Carbon Dioxide 28 (22-30) mmol/L Anion Gap 10.3 (5-15) MEQ/L BUN 20 (9-20) mg/dL Creatinine 0.64 L (0.66-1.25) mg/dL Estimated GFR > 60.0 ML/MIN Glucose 168 H (74-106) mg/dL Calcium 8.4 (8.4-10.2) mg/dL Total Bilirubin 0.50 (0.2-1.3) mg/dL AST 29 (17-59) U/L ALT 33 (0-50) U/L Alkaline Phosphatase 68 (38-126) U/L Serum Total Protein 7.0 (6.3-8.2) g/dL Albumin 3.6 (3.5-5.0) g/dL Radiology Exams: Radiology Procedures Category Date Time Status KUB Urgent Exams 06/13/22 09:45 Completed Multi-Disciplinary Progress Notes: Multi-Disciplinary Progress Notes 06/14/22 10:39 Case Management Note by Vianey Suggs Spoke with pt and pt still plans to return home and sister will assist at [place]. No new needs identified. Initialized on 06/14/22 10:39 - END OF NOTE Assessment/Plan (1) Postoperative ileus Status: Suspected Assessment & Plan: Dr Laird managing Code(s): K91.89 - OTH POSTPROCEDURAL COMPLICATIONS AND DISORDERS OF DGSTV SYS; K56.7 - ILEUS, UNSPECIFIED (2) Appendicitis with peritoneal abscess Status: Resolved Assessment & Plan: post op N/V,KUB suspected ileus - ambulate patient Code(s): K35.33 - ACUTE APPENDICITIS WITH PERF AND LOC PERITONITIS, WITH ABSCS
[2022-06-14] MEDS: PROTONIX 40 MG IV IV SCH (13:35)
[2022-06-14] MEDS ORDERED: Zofran 4 MG/2 ML VIAL IV PRN (15:47)
[2022-06-14] MEDS: MEFOXIN 2 GM PREMIX** 2 GM/50 ML ML IV SCH ×2 (17:53→23:27)
[2022-06-14] MEDS: NEURONTIN PO SCH (21:34)
[2022-06-15 04:58] LABS: Mean Cell Volume 93.8 fL (78-100); Mean Corpuscular Hemoglobin 32.1 pg (26-32); Mean Corpuscular Hgb Concent. 34.2 g/dL (32-36); Mean Platelet Volume 8.9 fL (7.5-11.0); Platelet Count 314 x10^3/uL (150-450); Red Blood Count 4.05 x10^6/uL (4.1-5.6); White Blood Count 11.6 x10^3/uL (4.0-10.5)
[2022-06-15 05:28] LABS: ALBUMIN 3.2 g/dL (3.5-5.0); ALKALINE PHOSPHATASE 62 U/L (38-126); ANION GAP 8.6 MEQ/L (5-15); BLOOD UREA NITROGEN 14 mg/dL (9-20); CHLORIDE 103 mmol/L (98-107); Calcium 8.6 mg/dL (8.4-10.2); Carbon Dioxide 25 mmol/L (22-30); Creatinine 1 0.61 mg/dL (0.66-1.25); EST GLOMERULAR FILTRATION RATE > 60.0 ML/MIN; Glucose 124 mg/dL (74-106); Potassium 3.9 mmol/L (3.5-5.1); SGOT/AST 33 U/L (17-59); SGPT/ALT 39 U/L (0-50); SODIUM 133 mmol/L (137-145); Total Protein 6.4 g/dL (6.3-8.2)
[2022-06-15] MEDS: MEFOXIN 2 GM PREMIX** 2 GM/50 ML ML IV SCH ×3 (06:05→17:33)
[2022-06-15 07:51] LABS: Eosinophil 3 % (0.00-3.0); Lymphocytes 13 % (24-44); Monocyte 8 % (0.0-12.0); Neutrophils 76 % (36.-66.); Platelet Estimate NORMAL (NORMAL); Total Cells Counted 100
[2022-06-15] MEDS: TYLENOL 325 MG PO PRN ×3 (08:22→22:02)
[2022-06-15] MEDS: Mylicon 80MG PO PRN ×4 (08:22→22:02)
--- NOTE | 2022-06-15 09:55 | XRAY ---
Indication: Abdominal distention/swelling. Multiple contiguous axial images obtained through the abdomen and pelvis without contrast. Comparison: June 12, 2022 Lung bases demonstrates worsening moderate bibasilar subsegmental atelectasis. Heart not enlarged. Noncontrasted stomach unremarkable. There has been appendectomy with new right lower quadrant percutaneous VASILE drain in situ. Tiny free fluid left/right colic gutter and tiny free air presumed postoperative. No walled off fluid collection/abscess. Small and large bowel loops are now mildly fluid distended throughout with synchronous fluid leveling favoring postoperative ileus. Stable fatty liver, left renal cyst, and tiny splenic calcified granulomas. Remaining liver, gallbladder, pancreas, spleen, adrenal glands, kidneys, ureters, bladder, and aorta are unremarkable for noncontrast exam. Impression: 1. Status post appendectomy with VASILE drain in situ and tiny postoperative free fluid/air. 2. New postoperative ileus. 3. Again incidental fatty liver and left renal cyst.
[2022-06-15] MEDS: D5W/0.45NS W/ 20mEq KCl 1000 ML 1,000 ML IV SCH ×2 (10:29→22:28)
[2022-06-15] MEDS: Flomax 0.4 MG PO SCH (10:29)
[2022-06-15] MEDS: ENOXAPARIN SODIUM SQ SCH (10:29)
[2022-06-15] MEDS: PROTONIX 40 MG IV IV SCH (13:27)
[2022-06-15] MEDS: NEURONTIN PO SCH (22:02)
[2022-06-16] MEDS: MEFOXIN 2 GM PREMIX** 2 GM/50 ML ML IV SCH ×5 (00:06→23:46)
[2022-06-16 05:11] LABS: Hematocrit 37.8 % (42-50); Hemoglobin 12.8 g/dL (12.5-18.0); Mean Cell Volume 94.3 fL (78-100); Mean Corpuscular Hemoglobin 31.9 pg (26-32); Mean Corpuscular Hgb Concent. 33.9 g/dL (32-36); Mean Platelet Volume 8.7 fL (7.5-11.0); Platelet Count 318 x10^3/uL (150-450); Red Blood Count 4.01 x10^6/uL (4.1-5.6); Red Cell Distribution Width 12.8 % (11.5-14.0); White Blood Count 10.4 x10^3/uL (4.0-10.5)
[2022-06-16 05:41] LABS: ALKALINE PHOSPHATASE 60 U/L (38-126); ANION GAP 11.4 MEQ/L (5-15); BLOOD UREA NITROGEN 11 mg/dL (9-20); CHLORIDE 106 mmol/L (98-107); Calcium 8.6 mg/dL (8.4-10.2); Carbon Dioxide 22 mmol/L (22-30); Creatinine 1 0.56 mg/dL (0.66-1.25); EST GLOMERULAR FILTRATION RATE > 60.0 ML/MIN; Glucose 112 mg/dL (74-106); Potassium 4.1 mmol/L (3.5-5.1); SGOT/AST 35 U/L (17-59); SGPT/ALT 44 U/L (0-50); SODIUM 136 mmol/L (137-145); Total Protein 6.1 g/dL (6.3-8.2)
[2022-06-16] MEDS: Mylicon 80MG PO PRN ×2 (07:33→17:57)
--- NOTE | 2022-06-16 07:50 | CONS ---
CONSULT DATE: 06/15/2022 HISTORY: Postoperative day #3, follow up acute appendix. It was taken out on Monday. It was ruptured. He was doing pretty good. He backed up a little yesterday. He had a lot of quite foul stool yesterday this is not necessarily bad. PHYSICAL EXAM: His vital signs are stable. HEENT: He has quite sunken cheeks, slightly sallow look. : He is voiding satisfactorily. His Vu has been removed. ABDOMEN: His abdomen is soft. His drain is clear. IMPRESSION: He has his and I believe his 's sister there this evening. He is overall doing basically well. It looks like another day or two, could be tomorrow but probably Monday and this was discussed with them.
[2022-06-16] MEDS: ENOXAPARIN SODIUM SQ SCH (08:58)
[2022-06-16] MEDS: Flomax 0.4 MG PO SCH (08:58)
[2022-06-16] MEDS: D5W/0.45NS W/ 20mEq KCl 1000 ML 1,000 ML IV SCH ×2 (10:15→21:13)
[2022-06-16] MEDS: PROTONIX 40 MG IV IV SCH (13:30)
[2022-06-16] MEDS: NEURONTIN PO SCH (21:16)
[2022-06-17] MEDS: MEFOXIN 2 GM PREMIX** 2 GM/50 ML ML IV SCH (06:06)
--- NOTE | 2022-06-17 08:14 | PROG NOTE ---
DATE: 06/16/2022 HISTORY: Charles Foote was walking in the halls. He felt better. His Kris-Jones drain was slightly pink. His abdomen was very soft. He did not have any bowel movements. He thought he might be able to go on Monday.
[2022-06-17] MEDS: Flomax 0.4 MG PO SCH (09:02)
[2022-06-17] MEDS: ENOXAPARIN SODIUM SQ SCH (09:02)
[2022-06-17 11:42] VITALS: BP 144/85; PULSE 80; O2SAT 97
--- NOTE | 2022-06-28 21:30 | PCM.DS ---
Discharge Summary Date of Admission: 06/13/22 03:00 Date of Discharge: 06/17/2022 Admitting Physician: NGOZI RUELAS DO Consults: Consults on Case 06/12/22 12:43 Consult Surgery ROUTINE Primary Care Provider: ELIZ BECERRA NP Allergies Allergies No Known Drug Allergies Allergy (Verified 06/12/22 08:43) Hospital Summary - Hospital Course Hospital Course: Pt. admitted for appendectomy, he was found to have an abscess, drain placed and patient continued on iv abx. Pt slowly improved, was tolerating po with no n/v, drain was still draining but felt the patient was stable to d/c to home with appropriate continued antibiotics and surgical follow-up of the drainage tube. - Vitals & Intake/Output Vital Signs: Vital Signs Temperature 98.2 F 06/17/22 11:42 Pulse Rate 80 06/17/22 11:42 Respiratory Rate 16 06/17/22 11:42 Blood Pressure 144/85 06/17/22 11:42 O2 Sat by Pulse Oximetry 97 06/17/22 11:42 - Lab Result Diagrams: 06/16/22 05:13 06/16/22 05:13 Micro Results-Entire Visit: Microbiology 06/12/22 14:52 Urine Culture - Final Urine, Catheterized NO GROWTH 06/12/22 13:46 Urine Culture - Final Urine, Void NO GROWTH - Procedures and Test Procedures and Tests throughout Hospitalization: Therapy Orders & Screens 06/12/22 15:30 Incentive Spirometry UD Comment: Diagnosis: POST APPENDECTOMY 06/12/22 19:00 Respiratory Therapy Assessment DAILY Comment: Diagnosis: POST APPENDECTOMY Discharge Exam General Appearance: no apparent distress, alert Neurologic Exam: alert, oriented x 3, cooperative, normal mood/affect, nml cerebellar function, sensation nml, No motor deficits Eye Exam: PERRL, EOMI, eyes nml inspection Ears, Nose, Throat Exam: normal ENT inspection, pharynx normal, moist mucous membranes Neck Exam: normal inspection, non-tender, supple, full range of motion Respiratory Exam: normal breath sounds, lungs clear, No respiratory distress Cardiovascular Exam: regular rate/rhythm, normal heart sounds Gastrointestinal/Abdomen Exam: soft, normal bowel sounds, tenderness (mild tenderness oin the rlq, drainage is continuing with serosangenous fluids), No mass Male Genitalia Exam: deferred Rectal Exam: deferred Back Exam: normal inspection, normal range of motion, No CVA tenderness, No ve rtebral tenderness Extremity Exam: normal inspection, normal range of motion Skin Exam: normal color, warm, dry Final Diagnosis/Problem List - Final Discharge Diagnosis/Problem (1) Postoperative ileus Status: Suspected Code(s): K91.89 - OTH POSTPROCEDURAL COMPLICATIONS AND DISORDERS OF DGSTV SYS; K56.7 - ILEUS, UNSPECIFIED (2) Appendicitis with peritoneal abscess Status: Resolved Code(s): K35.33 - ACUTE APPENDICITIS WITH PERF AND LOC PERITONITIS, WITH ABSCS - Discharge Discharge Date: 06/17/22 Disposition: Home, Self-Care Condition: Stable Prescriptions: New Acetaminophen 325 mg [Tylenol 325 mg] 650 mg PO Q4H PRN PRN tablet PRN Reason: Pain, Fever, Headache Continue Barton-3S/Dha/Epa/Fish Oil [Fish Oil Dr 1,000 mg Softgel] 1 each PO DAILY Meloxicam 15 mg [Meloxicam 15 MG] 15 mg PO DAILY Gabapentin [Neurontin ] 300 mg PO HS Fenofibrate Nanocrystallized [Fenofibrate] 145 mg PO DAILY Alfuzosin HCl [Alfuzosin HCl ER] 10 mg PO DINNER Instructions: Postoperative Ileus (DC), Appendectomy, Laparoscopic Surgery (DC) Additional Instructions: No driving for one week post op Do not bathe for 2 weeks post Do not lift more than ten pounds. No excessive twisting or bending or standing or walking. Take frequent rest periods. Keep drain area dry. Do not shower until Drain is out. Empty VASILE drain every six hours unless full. Follow up with: ELIZ BECERRA NP [Primary Care Provider] - ARNIE HAIDER [ACTIVE STAFF] - 06/23/22 2:25 pm (at [facility] ) Forms: Discharge Instructions, Work/School Release Form
== END 2022-06-17 11:55 | disposition home or self-care (01) | DRG 341 ==
LOC: ED 08:25 → MED SURG 15:30 → OBSVTOIN 06-13 03:00
PROVIDERS: ADMIT Family Medicine; ATTEND Family Medicine
PROC: 0DTJ4ZZ Resection of Appendix, Percutaneous Endoscopic Approach (ICD-10-PCS; principal; 2022-06-12)
PROC: 0WCJ4ZZ Extirpation of Matter from Pelvic Cavity, Percutaneous Endoscopic Approach (ICD-10-PCS; 2022-06-12)
DX: K91.89 Other postprocedural complications and disorders of digestive system (principal); K35.33 Acute appendicitis with perforation, localized peritonitis, and gangrene, with abscess; K56.7 Ileus, unspecified; Z20.828 Contact with and (suspected) exposure to other viral communicable diseases
CPT/HCPCS: 0241U; 36000; 36415; 44970; 45000; 74018; 74176; 74177; 80048; 80053; 81001; 82150; 83690; 84132; 84484; 85025; 85027; 87086; 99283; 88304; 99140; J0330; J0694; J1100; J1650; J1885; J2405; J2543; J2704; J3010; J3480; A9270-GY

== ENCOUNTER 2022-07-08 06:05 | Day surgery (SDC) | payer OTHER ==
[2022-07-08] MEDS ORDERED: Lactated Ringers 1,000 ML IV ONE (06:40)
[2022-07-08] MEDS ORDERED: Lactated Ringers 1,000 ML IV SCH (07:30)
[2022-07-08] MEDS ORDERED: DIPRIVAN 200 MG/20 ML IV ONE (07:40)
[2022-07-08] MEDS ORDERED: Versed 2 MG/2 ML Injection ONE (07:40)
[2022-07-08] MEDS ORDERED: Xylocaine-Mpf 2% 5 Ml Vial ONE (07:40)
[2022-07-08 08:39] VITALS: PULSE 71
[2022-07-08 08:41] VITALS: BP 132/84; O2SAT 100
--- NOTE | 2022-07-08 09:16 | OP ---
SURGERY DATE/TIME: 07/08/2022 0740 PREOPERATIVE DIAGNOSIS: Screening exam. POSTOPERATIVE DIAGNOSIS: Normal colon. PROCEDURE: Colonoscopy. SURGEON: Dr. Mckenna. ANESTHESIA: MAC. Medications given by anesthesia department. HISTORY: The patient is a 51-year-old white male presenting now for screening colonoscopy. He was appraised of the risks of the procedure including the risk of perforation, phlebitis, untoward reaction to medication, bleeding and missed lesions. The patient verbalized his understanding and desired to have the procedure performed. DESCRIPTION OF PROCEDURE: The patient was given the medications by the anesthesia department. He had continuous pulse oximetry, ECG monitoring and intermittent blood pressure monitoring during the examination. He was placed in the left lateral decubitus position. A digital rectal examination was performed and revealed normal anal sphincter tone, no masses and normal prostate. The flexible Olympus pediatric colonoscope was used to intubate the rectum. A view of the colon was developed sequentially to the cecum. Upon insertion and withdrawal, including a retroflex view in the rectum, no mucosal lesions were encountered. The scope was removed from the patient who tolerated the procedure well and sent back to OP recovery in good condition. The prep was noted to be fair.
== END 2022-07-08 08:45 | disposition home or self-care (01) ==
LOC: SDC 06:05
PROVIDERS: ATTEND Family Medicine
DX: Z12.11 Encounter for screening for malignant neoplasm of colon (principal)
CPT/HCPCS: J2250; J2704

== ENCOUNTER 2023-07-04 21:45 | Observation (INO) | payer OTHER ==
--- NOTE | 2023-07-04 23:37 | ERPHSYRPT ---
- History of Present Illness Time Seen by Provider: 07/04/23 22:30 Source: patient Patient Subjective Stated Complaint: standing next to cable and it snapped back and took my feet out from under me Triage Nursing Assessment: Pt to room via wheel chair. Left medial ankle edema present, nonpitting. Left pedal pulse and postibial pulse present. Physician History: 52-year-old male presents to our ED for evaluation of left ankle pain. Patient was at work. Patient states that he injured his ankle on a cable. Patient fell to the ground however no other injuries reported. Injury occurred is prior to arrival. Pain described as an ache that is localized. No radiation. Pain worse with movement and palpation pain improved with rest. No other injuries reported. Patient denies pain to the knee hip back. No BHT or LOC. Cervical spine cleared clinically. Portions of this note were created with voice recognition technology. There may be grammatical, spelling, punctuation or sound alike errors Method of Injury: fell Occurred: just prior to arrival Quality: constant Severity of Pain-Max: moderate Severity of Pain-Current: mild Lower Extremities Pain: ankle: left Modifying Factors: Improves With: movement Associated Symptoms: none Allergies/Adverse Reactions: No Known Drug Allergies Allergy (Verified 07/04/23 21:56) Home Medications: Alfuzosin HCl [Alfuzosin HCl ER] 10 mg PO DINNER 06/12/22 [History] Fenofibrate Nanocrystallized [Fenofibrate] 145 mg PO DAILY 06/12/22 [History] Meloxicam 15 mg [Meloxicam 15 MG] 15 mg PO DAILY 06/12/22 [History] [place]-3S/Dha/Epa/Fish Oil [Fish Oil Dr 1,000 mg Softgel] 1 each PO DAILY 06/12/22 [History] Aspirin [Aspirin EC] 81 mg PO DAILY 07/04/22 [History] Fenofibrate,Micronized 145 mg* [Tricor 145 MG] 145 mg PO DAILY 07/04/22 [History] Hydrochlorothiazide 25 mg [hydroDIURIL 25 MG] 25 mg PO DAILY 07/04/22 [History] Hx Tetanus, Diphtheria Vaccination/Date Given: No Hx Influenza Vaccination/Date Given: No Hx Pneumococcal Vaccination/Date Given: No Travel Risk - International Travel Have you traveled outside of the country in past 3 weeks: No - Vaccine Status Have you recieved a Covid-19 vaccination: No - Review of Systems Constitutional: No Symptoms, No Fever, No Chills Eyes: No Symptoms Ears, Nose, & Throat: No Symptoms Respiratory: No Symptoms, No Cough, No Dyspnea Cardiac: No Symptoms, No Chest Pain, No Edema, No Syncope Abdominal/Gastrointestinal: No Symptoms, No Abdominal Pain, No Nausea, No Vomiting, No Diarrhea Genitourinary Symptoms: No Symptoms, No Dysuria Musculoskeletal: No Symptoms, No Back Pain, No Neck Pain Skin: No Symptoms, No Rash Neurological: No Symptoms, No Dizziness, No Focal Weakness, No Sensory Changes Psychological: No Symptoms Endocrine: No Symptoms Hematologic/Lymphatic: No Symptoms Immunological/Allergic: No Symptoms All Other Systems: Reviewed and Negative - Past Medical History Pertinent Past Medical History: Yes Neurological History: No Pertinent History ENT History: No Pertinent History Cardiac History: High Cholesterol Respiratory History: No Pertinent History Endocrine Medical History: No Pertinent History Musculoskeletal History: No Pertinent History GI Medical History: No Pertinent History History: No Pertinent History Psycho-Social History: No Pertinent History Male Reproductive Disorders: Prostate Problems - Past Surgical History Past Surgical History: Yes Neuro Surgical History: No Pertinent History Cardiac: No Pertinent History Respiratory: No Pertinent History Gastrointestinal: Appendectomy Genitourinary: No Pertinent History Musculoskeletal: Orthopedic Surgery, Other Male Surgical History: No Pertinent History Other Surgical History: carpal tunnel, bilateral hip replacements - Social History Smoking Status: Never smoker Exposure to second hand smoke: No Drug Use: none Patient Lives Alone: Yes - Nursing Vital Signs Nursing Vital Signs: Initial Vital Signs Temperature 98.1 F 07/04/23 22:15 Pulse Rate 74 07/04/23 22:15 Respiratory Rate 18 07/04/23 22:15 Blood Pressure 149/97 07/04/23 22:15 O2 Sat by Pulse Oximetry 94 L 07/04/23 22:15 Pain Scale Pain Intensity 0 - Physical Exam General Appearance: no apparent distress, alert Eyes, Ears, Nose, Throat Exam: normal ENT inspection, TMs normal, pharynx normal, moist mucous membranes Neck Exam: non-tender, supple Cardiovascular/Respiratory Exam: chest non-tender, normal breath sounds, regular rate/rhythm, no respiratory distress Gastrointestinal/Abdominal Exam: non-tender, guarding Back Exam: normal inspection, No vertebral tenderness Hips Exam: bilateral: non-tender, normal inspection, normal range of motion, no evidence of injury Legs Exam: bilateral leg: non-tender, normal inspection, normal range of motion, no evidence of injury Knees Exam: bilateral knee: non-tender, normal inspection, normal range of motion, no evidence of injury Ankle Exam: right ankle: pain, soft tissue tenderness, other (The involved extremities neurovascular tact distally compartments are soft cap refill less than 2 seconds. PT DP pulse palpable.), left ankle: non-tender, normal inspection, normal range of motion, no evidence of injury Foot Exam: bilateral foot: non-tender, normal inspection, normal range of motion, no evidence of injury Neuro/Tendon Exam: normal sensation, normal motor functions Mental Status Exam: alert, oriented x 3, cooperative Skin Exam: normal color, warm, dry SpO2 Interpretation: normal SpO2: 94 O2 Delivery: Room Air - Course Nursing assessment & vital signs reviewed: Yes - Radiology Exams Ankle X-ray Interpretation: Interpreted by me (Distal fibular fracture with a displaced mortise) Foot X-ray Interpretation: Interpreted by me (No foot fracture dislocation) Other X-ray Interpretation: Interpreted by me (Postreduction film shows improved position of ankle mortise and distal fibular fracture) Ordered Tests: Active Orders 24 hr Category Date Time Status ANKLE (3 VIEWS) Stat Exams 07/04/23 21:55 Taken ANKLE (3 VIEWS) Stat Exams 07/05/23 01:25 Taken FOOT (MINIMUM 3 VIEWS) Stat Exams 07/04/23 21:55 Taken LOWER LEG Stat Exams 07/04/23 23:37 Taken Alcohol [ETHYL ALCOHOL] Stat Lab 07/05/23 00:19 Completed UA W/RFX UR CULTURE Stat Lab 07/05/23 00:20 Completed Urine Triage Profile Stat Lab 07/05/23 00:20 Completed Transfer Order Routine Transfer 07/05/23 Ordered Medication Summary Discontinued Medications Generic Name Dose Route Start Last Admin Trade Name Freq PRN Reason Stop Dose Admin Ketorolac Tromethamine 30 mg 07/05/23 01:12 07/05/23 01:25 Ketorolac Tromethamine 30 Mg/Ml Inj IV 07/05/23 01:13 30 mg STAT ONE Administration Ketorolac Tromethamine Confirm 07/05/23 01:11 Ketorolac Tromethamine 30 Mg/Ml Inj Administered 07/05/23 01:12 Dose 30 mg .ROUTE .STK-MED ONE Morphine Sulfate 4 mg 07/05/23 01:12 07/05/23 01:26 Morphine Sulfate 4 Mg/Ml Injection IV 07/05/23 01:13 4 mg STAT ONE Administration Morphine Sulfate Confirm 07/05/23 01:11 Morphine Sulfate 4 Mg/Ml Injection Administered 07/05/23 01:12 Dose 4 mg .ROUTE .STK-MED ONE Ondansetron HCl Confirm 07/05/23 01:11 Ondansetron Hcl 4 Mg/2 Ml Vial Administered 07/05/23 01:12 Dose 4 mg .ROUTE .STK-MED ONE Lab/Rad Data: Laboratory Results 07/05/23 07/05/23 07/05/23 Range/Units 00:20 00:20 00:19 Urine Color Yellow (Yellow) Urine Appearance Turbid A (Clear) Urine pH 7.0 (4.6-8.0) Ur Specific [place] 1.020 (1.005-1.030) Urine Protein Negative (Negative) Urine Glucose (UA) Negative (Negative) mg/dL Urine Ketones Negative (Negative) Urine Blood Negative (Negative) Urine Nitrite Negative (Negative) Urine Bilirubin Negative (Negative) Urine Urobilinogen 0.2 (0.2) mg/dL Ur Leukocyte Esterase Negative (Negative) U Hyaline Cast (Auto) NONE SEEN (0-2) /LPF Urine Microscopic RBC 0-2 (0-5) /HPF Urine Microscopic WBC 0-2 (0-5) /HPF Ur Epithelial Cells None Seen (None Seen) /HPF Urine Bacteria None Seen (None Seen) /HPF Urine Culture Reflexed NO (NO) Urine Opiates Level NEGATIVE (NEGATIVE) Ur Methadone NEGATIVE (NEGATIVE) Urine Barbiturates NEGATIVE (NEGATIVE) Ur Phencyclidine (PCP) NEGATIVE (NEGATIVE) Urine Amphetamine NEGATIVE (NEGATIVE) U Benzodiazepine Level NEGATIVE (NEGATIVE) Urine Cocaine NEGATIVE (NEGATIVE) Urine Marijuana (THC) NEGATIVE (NEGATIVE) Ethyl Alcohol < 10 (0-10) mg/dL - Progress Progress: improved Progress Note: 07/04/23 23:[address] Ponce orthopedic surgeon at 11:50 PM. He feels patient is appropriate for discharge after immobilization. He will follow-up with patient tomorrow morning. Dr. Messina accepts admission at 1:58 AM 07/05/23 01:58 52-year-old male with injury to his left ankle. X-ray reveals a dislocated ankle mortise and a distal fibular fracture. Case discussed with Dr. Ponce of orthopedic surgery. From Dr. Ponce's perspective patient could be discharged home however due to social issues patient requested admission. The fracture was reduced. The patient was neurovascular tact distally post reduction. Patient states he is has too many stairs up into his house and he cannot maneuver crutches. Portions of this note were created with voice recognition technology. There may be grammatical, spelling, punctuation or sound alike errors Complexity problem addressed is moderate acute complicated No critical care time Complexity data reviewed and analyzed is moderate. Dr Garcia independent reviewed x-rays. Results analyzed and correlated clinically with history and physical exam. Risk of complication and or risk of morbidity/mortality patient management is high. Patient requires hospitalization for further evaluation and treatment. Vital stable time spent to admit patient is approximately 15 minutes. Plan of care established for shared decision making. No social determinants of health present impede follow-up. Portions of this note were created with voice recognition technology. There may be grammatical, spelling, punctuation or sound alike errors 07/05/23 02:00 Counseled pt/family regarding: diagnosis, rad results - Departure Departure Disposition: Observation Clinical Impression: Ankle fracture, Fall Condition: Stable Critical Care Time: No Referrals: ELIZ BECERRA MECHANIC ASSISTANT [Primary Care Provider] - Follow up/PCP as directed
[2023-07-05] MEDS ORDERED: MORPHINE SULFATE 4 MG INJ ONE (01:11)
[2023-07-05] MEDS ORDERED: Zofran 4 MG/2 ML VIAL ONE (01:11)
[2023-07-05] MEDS ORDERED: TORAdol 30 mg Injection ONE (01:11)
[2023-07-05 01:12] LABS: Appearance Turbid (Clear); Bacteria None Seen /HPF (None Seen); Bilirubin Negative (Negative); Blood Negative (Negative); Epithelial Cells None Seen /HPF (None Seen); Glucose, Urine Negative (Negative); Hyaline Casts NONE SEEN /LPF (0-2); Ketones Negative (Negative); Leukocyte Esterase Negative (Negative); Nitrite Negative (Negative); Protein,Urine Dip Negative (Negative); RBC 0-2 /HPF (0-5); Urobilinogen 0.2 mg/dL (0.2); WBC 0-2 /HPF (0-5)
[2023-07-05 01:23] LABS: Amphetamine,Urine NEGATIVE (NEGATIVE); Barbiturate,Urine NEGATIVE (NEGATIVE); Benzodiazepine,Urine NEGATIVE (NEGATIVE); Cocaine,Urine NEGATIVE (NEGATIVE); Methadone,Urine NEGATIVE (NEGATIVE); Opiate,Urine NEGATIVE (NEGATIVE); PCP,Urine NEGATIVE (NEGATIVE); THC,Urine NEGATIVE (NEGATIVE)
[2023-07-05 01:24] LABS: ADD URINE CULTURE? NO (NO)
[2023-07-05] MEDS: TORAdol 30 mg Injection IV ONE (01:25)
[2023-07-05] MEDS: MORPHINE SULFATE 4 MG INJ IV ONE (01:26)
--- NOTE | 2023-07-05 02:54 | PCM.HP ---
History of Present Illness - Chief Complaint Chief Complaint: L ankle pain Date: 07/05/23 History of Present Illness: Mr. 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 Upon arrival, he was given IV morphine and was found to have a left ankle fracture that was reduced in the ER. He was concerned that he would be unable to navigate the multitude of stairs at his house with crutches, so he has been recommended for admission to await surgical disposition. He is currently resting in bed, awake/alert. Pain is currently 05/03. - Review of Systems Constitutional: No Fever, No Chills Eyes: No Vision Changes Ears, Nose, & Throat: No Hearing Changes, No Throat Pain Respiratory: No Cough, No Orthopnea, No Short Of Breath Cardiac: No Chest Pain, No Edema Abdominal/Gastrointestinal: No Nausea, No Vomiting, No Diarrhea Genitourinary Symptoms: No Dysuria, No Frequency, No Hematuria Musculoskeletal: Fall, Injury, Joint Pain Skin: No Symptoms, No Rash Neurological: No Gait Changes, No Headache Psychological: No Suicidal Ideations Endocrine: No Polyuria Medications & Allergies Home Medications: Home Medication List Alfuzosin HCl [Alfuzosin HCl ER] 10 mg PO DINNER 06/12/22 [History Confirmed 07/04/23] Meloxicam 15 mg [Meloxicam 15 MG] 15 mg PO DAILY 06/12/22 [History Confirmed 07/04/23] [place]-3S/Dha/Epa/Fish Oil [Fish Oil Dr 1,000 mg Softgel] 1 each PO DAILY 06/12/22 [History Confirmed 07/04/23] Acetaminophen 325 mg [Tylenol 325 mg] 650 mg PO Q4H PRN PRN tablet 06/17/22 [Rx Confirmed 07/04/23] Aspirin [Aspirin EC] 81 mg PO DAILY 07/04/22 [History Confirmed 07/04/23] Fenofibrate,Micronized 145 mg* [Tricor 145 MG] 145 mg PO DAILY 07/04/22 [History Confirmed 07/04/23] Hydrochlorothiazide 25 mg [hydroDIURIL 25 MG] 25 mg PO DAILY 07/04/22 [History Confirmed 07/04/23] Allergies/Adverse Reactions: Allergies Allergy/AdvReac Type Severity Reaction Status Date / Time No Known Drug Allergies Allergy Verified 07/04/23 21:56 - Past Medical History Past Medical History: Yes Neurological History: No Pertinent History ENT History: No Pertinent History Cardiac History: High Cholesterol Respiratory History: No Pertinent History Endocrine Medical History: No Pertinent History Musculoskelatal History: No Pertinent History GI Medical History: No Pertinent History History: No Pertinent History Pyscho-Social History: No Pertinent History Male Reproductive Disorders: Prostate Problems - Past Surgical History Past Surgical History: Yes Neuro Surgical History: No Pertinent History Cardiac History: No Pertinent History Respiratory Surgery: No Pertinent History GI Surgical History: Appendectomy Genitourinary Surgical Hx: No Pertinent History Musculskeletal Surgical Hx: Orthopedic Surgery, Other Male Surgical History: No Pertinent History Other Surgical History: carpal tunnel, bilateral hip replacements - Social History Smoking Status: Never smoker Exposure to second hand smoke: No Alcohol: Occasionally Drug Use: none - Physical Exam Vital Signs: Vital Signs - 24 hr Temp Pulse Resp BP Pulse Ox 07/05/23 02:20 94 L 07/05/23 01:36 73 18 143/80 95 07/05/23 00:24 55 L 20 123/79 98 07/04/23 22:15 98.1 F 74 18 149/97 94 L General Appearance: no apparent distress Neurologic Exam: alert, oriented x 3 Ears, Nose, Throat Exam: dry mucous membranes Neck Exam: supple Respiratory Exam: No respiratory distress, No accessory muscle use Cardiovascular Exam: regular rate/rhythm Gastrointestinal/Abdomen Exam: soft Extremity Exam: joint swelling, No pedal edema Skin Exam: No rash Results - Labs Lab/Micro Results: Lab Results-Last 24 Hours 07/05/23 07/05/23 07/05/23 Range/Units 00:19 00:20 00:20 Urine Color Yellow (Yellow) Urine Appearance Turbid A (Clear) Urine pH 7.0 (4.6-8.0) Ur Specific [place] 1.020 (1.005-1.030) Urine Protein Negative (Negative) Urine Glucose (UA) Negative (Negative) mg/dL Urine Ketones Negative (Negative) Urine Blood Negative (Negative) Urine Nitrite Negative (Negative) Urine Bilirubin Negative (Negative) Urine Urobilinogen 0.2 (0.2) mg/dL Ur Leukocyte Esterase Negative (Negative) U Hyaline Cast (Auto) NONE SEEN (0-2) /LPF Urine Microscopic RBC 0-2 (0-5) /HPF Urine Microscopic WBC 0-2 (0-5) /HPF Ur Epithelial Cells None Seen (None Seen) /HPF Urine Bacteria None Seen (None Seen) /HPF Urine Culture Reflexed NO (NO) Urine Opiates Level NEGATIVE (NEGATIVE) Ur Methadone NEGATIVE (NEGATIVE) Urine Barbiturates NEGATIVE (NEGATIVE) Ur Phencyclidine (PCP) NEGATIVE (NEGATIVE) Urine Amphetamine NEGATIVE (NEGATIVE) U Benzodiazepine Level NEGATIVE (NEGATIVE) Urine Cocaine NEGATIVE (NEGATIVE) Urine Marijuana (THC) NEGATIVE (NEGATIVE) Ethyl Alcohol < 10 (0-10) mg/dL - Radiology Impressions Radiology Exams & Impressions: Radiology Procedures Category Date Time Status ANKLE (3 VIEWS) Stat Exams 07/04/23 21:55 Taken ANKLE (3 VIEWS) Stat Exams 07/05/23 01:25 Taken FOOT (MINIMUM 3 VIEWS) Stat Exams 07/04/23 21:55 Taken LOWER LEG Stat Exams 07/04/23 23:37 Taken Assessment/Plan (1) Ankle fracture Current Visit: Yes Status: Acute Qualifiers: Encounter type: initial encounter Laterality: left Assessment & Plan: L ankle fracture from cable injury at work - status post reduction in ER 1. Will admit to the hospital under observation status 2. Pain control with morphine 3. Will keep NPO for now - await eval by ortho versus podiatry for surgery 4. IVFs while NPO 5. PT/OT eval 6. DVT prophylaxis Code(s): S82.899A - OTH FRACTURE OF UNSP LOWER LEG, INIT FOR CLOS FX (2) Essential (primary) hypertension Current Visit: Yes Status: Acute Assessment & Plan: Under reasonable control, exacerbated by pain 1. Continue bp meds 2. Low Na diet 3. Monitor blood pressure readings Code(s): I10 - ESSENTIAL (PRIMARY) HYPERTENSION (3) Hyperlipidemia, unspecified Current Visit: Yes Status: Acute Qualifiers: Hyperlipidemia type: moderate mixed hyperlipidemia not requiring statin therapy Qualified Code(s): E78.2 - Mixed hyperlipidemia Assessment & Plan: Likely hypertriglyceridemia 1. Continue fenofibrate 2. Low fat diet Code(s): E78.5 - HYPERLIPIDEMIA, UNSPECIFIED Telemedicine Encounter - Telemedicine Encounter Telemedicine Encounter: The entirety of this encounter was performed via Telemedicine"
[2023-07-05] MEDS: Dextrose 5% -0.45 NaCl 1000 ML 1,000 ML IV SCH (03:21)
[2023-07-05 04:53] LABS: Hematocrit 43.1 % (42-50); Hemoglobin 14.3 g/dL (12.5-18.0); Mean Cell Volume 95.8 fL (78-100); Mean Corpuscular Hemoglobin 31.8 pg (26-32); Mean Corpuscular Hgb Concent. 33.2 g/dL (32-36); Mean Platelet Volume 9.6 fL (7.5-11.0); Platelet Count 179 x10^3/uL (150-450); White Blood Count 9.2 x10^3/uL (4.0-10.5)
[2023-07-05 05:08] LABS: INR 1.13 (0.8-3.0); PROTIME 12.2 SECONDS (9.4-12.5)
[2023-07-05 05:11] LABS: ANION GAP 12.5 MEQ/L (5-15); Calcium 9.8 mg/dL (8.4-10.2); Creatinine 1 0.81 mg/dL (0.66-1.25); EST GLOMERULAR FILTRATION RATE 106.8 ML/MIN; Potassium 4.4 mmol/L (3.5-5.1)
--- NOTE | 2023-07-05 08:54 | XRAY ---
Indication: Pain following injury. Comparison: None 2 view left lower leg demonstrates minimally displaced oblique fracture distal shaft fibula and nondisplaced posterior malleolus fracture with soft tissue swelling. No other bony, articular, or soft tissue abnormalities.
--- NOTE | 2023-07-05 08:56 | XRAY ---
Indication: Pain following injury. Comparison: None 3 nonweightbearing views left foot demonstrates minimally displaced oblique fracture distal shaft fibula and tiny cortical fracture posterior malleolus with soft tissue swelling. Talus demonstrates mild lateral subluxation. Incidental tiny plantar heel spur. Remaining foot unremarkable.
--- NOTE | 2023-07-05 08:56 | XRAY ---
Indication: Pain following injury. Comparison: None 3 view left ankle demonstrates minimally displaced oblique fracture distal shaft fibula and tiny cortical fracture posterior malleolus with soft tissue swelling. Talus demonstrates mild lateral subluxation. No other bony, articular, or soft tissue abnormalities.
--- NOTE | 2023-07-05 08:58 | XRAY ---
Indication: Post reduction. Comparison: Taken earlier in the day. 3 view left ankle demonstrates new posterior splint material. Grossly stable minimally displaced oblique fracture distal shaft fibula, tiny cortical fracture posterior malleolus, lateral subluxation talus, and soft tissue swelling. No new bony, articular, or soft tissue abnormalities.
[2023-07-05] MEDS: MORPHINE SULFATE 2 MG INJ IV PRN (08:59)
[2023-07-05] MEDS: HEPARIN 5000 UNITS/0.5 ML (HIGH RISK MED) SQ SCH (08:59)
[2023-07-05] MEDS: Lactated Ringers 1,000 ML IV SCH (09:44)
[2023-07-05] MEDS ORDERED: Versed 2 MG/2 ML Injection ONE (11:06)
[2023-07-05] MEDS ORDERED: SUBLIMAZE 100 MCG/2 ML ONE (11:07)
[2023-07-05] MEDS ORDERED: ROCURONIUM BROMIDE IV ONE (11:08)
[2023-07-05] MEDS ORDERED: DIPRIVAN 200 MG/20 ML IV ONE (11:08)
[2023-07-05] MEDS ORDERED: Naropin 0.5% 30 ML VIAL ONE (11:10)
[2023-07-05] MEDS ORDERED: Xylocaine-Mpf 2% 5 Ml Vial ONE (11:13)
[2023-07-05] MEDS ORDERED: KEFZOL 1 GM ONE (11:43)
[2023-07-05] MEDS ORDERED: BRIDION 200MG/2ML IV ONE (13:13)
[2023-07-05] MEDS ORDERED: Lactated Ringers 1,000 ML IV ONE (13:35)
--- NOTE | 2023-07-05 13:49 | XRAY ---
Indication: Distal left fibula fracture repair. Intraoperative fluoroscopy provided for 9 minutes and 1 seconds. 50 digital spot images submitted for interpretation ultimately demonstrates fixation plate/screws fixating fibula shaft fracture. Also 2 transverse radiolucencies traverse distal tibia/fibula with medial/lateral orthopedic buttons. Correlate with intraoperative findings/report.
--- NOTE | 2023-07-05 16:46 | XRAY ---
Nine minutes and 1 second of fluoroscopy was used in surgery for a distal left fibula fracture repair.
[2023-07-06 04:45] LABS: Hematocrit 41.9 % (42-50); Hemoglobin 14.1 g/dL (12.5-18.0); Mean Cell Volume 94.8 fL (78-100); Mean Corpuscular Hemoglobin 31.9 pg (26-32); Mean Corpuscular Hgb Concent. 33.7 g/dL (32-36); Mean Platelet Volume 9.7 fL (7.5-11.0); Platelet Count 168 x10^3/uL (150-450); Red Blood Count 4.42 x10^6/uL (4.1-5.6); Red Cell Distribution Width 13.2 % (11.5-14.0); White Blood Count 9.5 x10^3/uL (4.0-10.5)
[2023-07-06 05:17] LABS: ANION GAP 10.5 MEQ/L (5-15); Calcium 8.6 mg/dL (8.4-10.2); Creatinine 1 0.7 mg/dL (0.66-1.25); EST GLOMERULAR FILTRATION RATE 111.6 ML/MIN
--- NOTE | 2023-07-06 07:19 | PCM.CONS ---
Podiatry HPI - Consult Date of Consultation Date: 07/05/23 Reason for Consult: Ankle fracture left Consulting Provider: KAYLEY VANCE DPM - [facility] History of Present Illness: Ischial patient examination and evaluation. Radiographs reviewed and discussed with patient demonstrating pronation external rotation injury to the left ankle with diastases of the syndesmosis and high fibular fracture with butterfly fragment. Due to the instability of the fracture patient would likely be a candidate for surgical intervention as soon as possible patient does have palpable pulses at this time. He is non-diabetic and not a cigarette smoker skin quality was assessed and positive pinch test on skin margins with no significant swelling will likely result in no significant healing issues with going forward at this time. Patient 2 OR for open reduction internal fixation bimalleolar fracture equivalent with syndesmotic reduction left ankle. Patient has been n.p.o. since last evening Popliteal and saphenous block prior to intervention Will follow following procedure Medications & Allergies Home Medications: Home Medication List Alfuzosin HCl [Alfuzosin HCl ER] 10 mg PO DINNER 06/12/22 [History Confirmed 07/05/23] Meloxicam 15 mg [Meloxicam 15 MG] 15 mg PO DAILY 06/12/22 [History Confirmed 07/05/23] [place]-3S/Dha/Epa/Fish Oil [Fish Oil Dr 1,000 mg Softgel] 1 each PO DAILY 06/12/22 [History Confirmed 07/05/23] Acetaminophen 325 mg [Tylenol 325 mg] 650 mg PO Q4H PRN PRN tablet 06/17/22 [Rx Confirmed 07/05/23] Aspirin [Aspirin EC] 81 mg PO DAILY 07/04/22 [History Confirmed 07/05/23] Fenofibrate,Micronized 145 mg* [Tricor 145 MG] 145 mg PO DAILY 07/04/22 [History Confirmed 07/05/23] Hydrochlorothiazide 25 mg [hydroDIURIL 25 MG] 25 mg PO DAILY 07/04/22 [History Confirmed 07/05/23] Allergies/Adverse Reactions: Allergies Allergy/AdvReac Type Severity Reaction Status Date / Time No Known Drug Allergies Allergy Verified 07/04/23 21:56 - Past Medical History Past Medical History: Yes Neurological History: No Pertinent History ENT History: No Pertinent History Cardiac History: High Cholesterol Respiratory History: No Pertinent History Endocrine Medical History: No Pertinent History Musculoskelatal History: No Pertinent History GI Medical History: No Pertinent History History: No Pertinent History Pyscho-Social History: No Pertinent History Male Reproductive Disorders: Prostate Problems Comment: pt states he has thyroid problems - Past Surgical History Past Surgical History: Yes Neuro Surgical History: No Pertinent History Cardiac History: No Pertinent History Respiratory Surgery: No Pertinent History GI Surgical History: Appendectomy Genitourinary Surgical Hx: No Pertinent History Musculskeletal Surgical Hx: Orthopedic Surgery, Other Male Surgical History: No Pertinent History Other Surgical History: carpal tunnel, bilateral hip replacements - Social History Smoking Status: Never smoker Exposure to second hand smoke: No Alcohol: Occasionally Drug Use: none - Social Determinants of Health Will the patient participate in the screening: Yes Do you worry about a steady place to live?: No Do you have any problems with any of the following?: No known problems In the past 12 months,have you had to go without utilities?: No Have you or anyone in your house had to go without enough: No Transportation Issues: No Has anyone in your support network made you feel unsafe?: No Does the patient want assistance with any of the above?: No Physical Exam - Vascular Peripheral Pulses: Posterior tibialis: 2+, Dorsalis-Pedis: 2+ - Narrative Narrative Physical Exam: Podiatry Physical Exam Results - Labs Lab/Micro Results: Lab Results-Last 24 Hours 07/06/23 07/06/23 Range/Units 04:28 04:28 WBC 9.5 (4.0-10.5) x10^3/uL RBC 4.42 (4.1-5.6) x10^6/uL Hgb 14.1 (12.5-18.0) g/dL Hct 41.9 L (42-50) % MCV 94.8 (78-100) fL MCH 31.9 (26-32) pg MCHC 33.7 (32-36) g/dL RDW 13.2 (11.5-14.0) % Plt Count 168 (150-450) x10^3/uL MPV 9.7 (7.5-11.0) fL Sodium 139 (135-145) mmol/L Potassium 4.0 (3.5-5.1) mmol/L Chloride 108 H (98-107) mmol/L Carbon Dioxide 24 (22-30) mmol/L Anion Gap 10.5 (5-15) MEQ/L BUN 14 (9-20) mg/dL Creatinine 0.70 (0.66-1.25) mg/dL Estimated GFR 111.6 ML/MIN Glucose 99 (74-106) mg/dL Calcium 8.6 (8.4-10.2) mg/dL - Radiology Impressions Radiology Exams & Impressions: Radiology Procedures Category Date Time Status ANKLE (3 VIEWS) Routine Exams 07/05/23 11:47 Completed ANKLE (3 VIEWS) Stat Exams 07/04/23 21:55 Completed ANKLE (3 VIEWS) Stat Exams 07/05/23 01:25 Completed FLUOROSCOPY UP TO 1 HR Routine Exams 07/05/23 11:48 Completed FOOT (MINIMUM 3 VIEWS) Stat Exams 07/04/23 21:55 Completed LOWER LEG Stat Exams 07/04/23 23:37 Completed
[2023-07-06] MEDS ORDERED: TYLENOL 325 MG PO PRN (07:42)
[2023-07-06 07:44] VITALS: RESP 16
[2023-07-06] MEDS ORDERED: MEDICATION INTERVENTION MC SCH (08:00)
[2023-07-06] MEDS: hydroDIURIL 25 MG PO SCH (08:42)
[2023-07-06] MEDS: Tricor 145 MG PO SCH (08:42)
[2023-07-06] MEDS: MELOXICAM PO SCH (08:43)
[2023-07-06] MEDS: ECOTRIN 81 MG PO SCH (08:43)
[2023-07-06] MEDS: FISH OIL 1,000 MG CAPSULE PO SCH (08:43)
[2023-07-06] MEDS ORDERED: [UNRECOGNIZED DRUG - OTHER] PO SCH (10:00)
[2023-07-06] MEDS ORDERED: NON-FORMULARY ITEM (Meloxicam 15 Mg [Meloxicam 15 Mg] 15 MG Tablet) PO SCH (10:00)
--- NOTE | 2023-07-06 10:04 | PCM.DS ---
Discharge Summary Date of Admission: 07/05/23 02:32 Date of Discharge: 07/06/23 Admitting Physician: BRISEYDA CARTER MD Consults: Consults on Case 07/05/23 07:34 Consult Ortho ROUTINE Primary Care Provider: ELIZ BECERRA NP Allergies Allergies No Known Drug Allergies Allergy (Verified 07/04/23 21:56) Hospital Summary - Hospital Course Hospital Course: Mr. ORTIZ is a 52 year old male with a past medical history significant for hypertension and hyperlipidemia. 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 Upon arrival, he was given IV morphine and was found to have a left ankle fracture that was reduced in the ER. He was concerned that he would be unable to navigate the multitude of stairs at his house with crutches. He had surgery yesteday on 07/04 for open reduction internal fixation bimalleolar fracture equivalent with syndesmotic reduction left ankle with Dr. Mast. He is doing well and pain is well controlled. PT working with pt on stairs today. If he does well and podiatry is ok with this he can d/c home today. He denies any further concerns at this time. - Vitals & Intake/Output Vital Signs: Vital Signs Temperature 96.9 F 07/06/23 07:44 Pulse Rate 81 07/06/23 07:44 Respiratory Rate 16 07/06/23 07:44 Blood Pressure 132/75 07/06/23 07:44 O2 Sat by Pulse Oximetry 94 L 07/06/23 07:44 Intake & Output: Intake & Output 07/03/23 07/04/23 07/05/23 07/06/23 11:59 11:59 11:59 11:59 Intake Total 0 1180 Output Total 150 Balance -150 1180 Weight 114 kg - Lab Result Diagrams: 07/06/23 04:28 07/06/23 04:28 Lab Results-Last 24 Hrs: Lab Results-Last 24 Hours 07/06/23 07/06/23 Range/Units 04:28 04:28 WBC 9.5 (4.0-10.5) x10^3/uL RBC 4.42 (4.1-5.6) x10^6/uL Hgb 14.1 (12.5-18.0) g/dL Hct 41.9 L (42-50) % MCV 94.8 (78-100) fL MCH 31.9 (26-32) pg MCHC 33.7 (32-36) g/dL RDW 13.2 (11.5-14.0) % Plt Count 168 (150-450) x10^3/uL MPV 9.7 (7.5-11.0) fL Sodium 139 (135-145) mmol/L Potassium 4.0 (3.5-5.1) mmol/L Chloride 108 H (98-107) mmol/L Carbon Dioxide 24 (22-30) mmol/L Anion Gap 10.5 (5-15) MEQ/L BUN 14 (9-20) mg/dL Creatinine 0.70 (0.66-1.25) mg/dL Estimated GFR 111.6 ML/MIN Glucose 99 (74-106) mg/dL Calcium 8.6 (8.4-10.2) mg/dL - Radiology Exams Ordered Rad Exams-Entire Visit: Radiology Procedures Category Date Time Status ANKLE (3 VIEWS) Routine Exams 07/05/23 11:47 Completed ANKLE (3 VIEWS) Stat Exams 07/04/23 21:55 Completed ANKLE (3 VIEWS) Stat Exams 07/05/23 01:25 Completed FLUOROSCOPY UP TO 1 HR Routine Exams 07/05/23 11:48 Completed FOOT (MINIMUM 3 VIEWS) Stat Exams 07/04/23 21:55 Completed LOWER LEG Stat Exams 07/04/23 23:37 Completed - Procedures and Test Procedures and Tests throughout Hospitalization: Therapy Orders & Screens 07/05/23 03:00 PT Eval & Treat ( Order) ONCE Reason for Eval:: L ankle pain Diagnosis: L ankle pain Discharge Exam General Appearance: no apparent distress, alert, obese Neurologic Exam: alert, oriented x 3, cooperative, normal mood/affect, nml cerebellar function, sensation nml, No motor deficits Eye Exam: PERRL, EOMI, eyes nml inspection Ears, Nose, Throat Exam: normal ENT inspection, pharynx normal, moist mucous membranes Neck Exam: normal inspection, non-tender, supple, full range of motion Respiratory Exam: normal breath sounds, lungs clear, No respiratory distress Cardiovascular Exam: regular rate/rhythm, normal heart sounds Gastrointestinal/Abdomen Exam: soft, No tenderness, No mass Male Genitalia Exam: deferred Rectal Exam: deferred Back Exam: normal inspection, normal range of motion, No CVA tenderness, No vertebral tenderness Extremity Exam: normal inspection, normal range of motion, tenderness (LLE from surgery on 07/04) Skin Exam: normal color, warm, dry Final Diagnosis/Problem List - Final Discharge Diagnosis/Problem (1) Ankle fracture Current Visit: Yes Status: Acute Assessment & Plan: L ankle fracture from cable injury at work - status post reduction in ER 1. Will admit to the hospital under observation status 2. Pain control with morphine 3. Will keep NPO untile eval for surgery 4. IVFs while NPO 5. PT/OT eval 6. DVT prophylaxis 07/05 - POD #1: open reduction internal fixation bimalleolar fracture equivalent with syndesmotic reduction left ankle with Dr. Mast- podiatry - Pain well controlled with narcotic pain medication - PT eval - If PT and podiatry ok can d/c today. - Podiatry to write for pain meds Code(s): S82.899A - OTH FRACTURE OF UNSP LOWER LEG, INIT FOR CLOS FX (2) Essential (primary) hypertension Current Visit: Yes Status: Chronic Assessment & Plan: Under reasonable control, exacerbated by pain 1. Continue bp meds 2. Low Na+ diet 3. Monitor blood pressure readings Code(s): I10 - ESSENTIAL (PRIMARY) HYPERTENSION (3) Hyperlipidemia, unspecified Current Visit: Yes Status: Chronic Assessment & Plan: Likely hypertriglyceridemia 1. Continue fenofibrate 2. Low fat diet Code(s): E78.5 - HYPERLIPIDEMIA, UNSPECIFIED (4) Obesity (BMI 30-39.9) Current Visit: Yes Status: Chronic Assessment & Plan: - advised diet and exercise control Code(s): E66.9 - OBESITY, UNSPECIFIED - Discharge Discharge Date: 07/06/23 Disposition: Home, Self-Care Condition: Stable Prescriptions: Continue [place]-3S/Dha/Epa/Fish Oil [Fish Oil Dr 1,000 mg Softgel] 1 each PO DAILY Meloxicam 15 mg [Meloxicam 15 MG] 15 mg PO DAILY Alfuzosin HCl [Alfuzosin HCl ER] 10 mg PO DINNER Acetaminophen 325 mg [Tylenol 325 mg] 650 mg PO Q4H PRN PRN tablet PRN Reason: Pain, Fever, Headache Fenofibrate,Micronized 145 mg* [Tricor 145 MG] 145 mg PO DAILY Hydrochlorothiazide 25 mg [hydroDIURIL 25 MG] 25 mg PO DAILY Aspirin [Aspirin EC] 81 mg PO DAILY Follow up with: ELIZ BECERRA, COMPLIANCE LEAD [Primary Care Provider] -
[2023-07-06 11:57] VITALS: BP 157/86; PULSE 71; TEMP 97.1; O2SAT 97
[2023-07-06] MEDS: NORCO 10-325 MG PO ONE (12:54)
[2023-07-06] MEDS ORDERED: NON-FORMULARY ITEM (Alfuzosin Hcl [Alfuzosin Hcl Er] 10 MG Tab.Er.24h) PO SCH (17:00)
--- NOTE | 2023-07-07 07:39 | PCM.NOTE ---
Date and Time: 07/07/23 0733 Subjective Assessment: POD #1 patient in minimal-moderate pain to left lower extremity this afternoon with leg elevated on two pillows. Alert and awake. Denies any constitutional symptoms of infection. Denies chest pain, sob or calf pain. wiggles toes. Physical Exam - General General Appearance: no apparent distress - Neuro Neurologic: Epicritic and protopathic - Vascular Peripheral Pulses: Posterior tibialis: 2+, Dorsalis-Pedis: 2+ Capillary Refill Time: < 3 seconds Hair Growth: Symmetrical and Bilateral Varicosities: Negtive (negative calf pain) - Narrative Narrative Physical Exam: Wiggles toes, Negative calf pain. Objective Data Vital Signs: Vital Signs - 24 hr Temp Pulse Resp BP Pulse Ox 07/06/23 11:57 97.1 F 71 16 157/86 97 07/06/23 07:44 96.9 F 81 16 132/75 94 L Pain Assessment - Last Documented Pain Intensity 4 Pain Scale Used 0-10 Pain Scale Intake and Output: Intake & Output 07/04/23 07/05/23 07/06/23 07/07/23 11:59 11:59 11:59 11:59 Intake Total 0 1180 240 Output Total 150 Balance -150 1180 240 Weight 114 kg Radiology Exams: Radiology Procedures Category Date Time Status ANKLE (3 VIEWS) Routine Exams 07/05/23 11:47 Completed FLUOROSCOPY UP TO 1 HR Routine Exams 07/05/23 11:48 Completed Multi-Disciplinary Progress Notes: Multi-Disciplinary Progress Notes 07/06/23 14:09 Physical Therapy Note by Angie(Shivam#[id number]),Allison PT. WAS SEEN BY P.T. THIS A.M. PT. HAS KNEE SCOOTER. IN BED UPON P.T. ARRIVAL TO ROOM. RATES L ANKLE PN AT 4/10. AMBULATED TO W/C W/ BILATERAL AXILLARY CRUTCHES NWB L LE W/ SBA. PT. ASCENDED AND DESCENDEND 5 STEPS X 2 W/ BILATERAL HRS AND CGA NWB L LE. PT. HAS 5 STEPS @ HOME AND STURFY BILATERAL HANDRAILS. PT. NAVIGATED KNEE SCOOTER SAFELY 100' WELL. CRUTCHES AND SCOOTER WERE ADJUSTED FOR HEIGHT. PT. HAS EQUPIMENT AND IS SAFE TO D/C HOME FORM MOBILITY STANDPOINT WHEN STABLE. Initialized on 07/06/23 14:09 - END OF NOTE 07/06/23 12:22 Case Management Note by Deanna Negro PATIENT PLANS TO DC HOME AT TIME OF DC. KNEE SCOOTER IN ROOM THAT HE RENTED. PATIENT ALSO HAS CRUTCHES IN ROOM AND PLANS TO BORROW A STANDARD WALKER FROM HIS SISTER. HE REPORTS HIS SISTER IS STAYING WITH HIM FOR A FEW DAYS TO HELP HIM AND HE HAS OTHER FAMILY THAT CAN HELP WELL. NO OTHER NEW NEEDS IDENTIFIED AT TIME OF DC. WAITING ON KAYLEY TO ROUND TO FINISH DC PLANNING Initialized on 07/06/23 12:22 - END OF NOTE Assessment/Plan (1) Pain in left ankle Status: Acute Assessment & Plan: Patient examination and evaluation POD #1 without any significant complaints. Radiographs discussed with patient Non weight bearing to left lower extremity PT consult for post op ambulation Mobic and 81 mg aspirin for dvt prophylaxis Hydrocodone 10/325mg q6h for pain management Keflex 500 Q6h for infection prophylaxis. Patient to follow up outpatient on Monday for repeat xrays and cast exchange. Ok for d/c from my standpoint if all medical criteria met. Code(s): M25.572 - PAIN IN LEFT ANKLE AND JOINTS OF LEFT FOOT (2) Ankle fracture Status: Acute Qualifiers: Encounter type: initial encounter Laterality: left Code(s): S82.899A - OTH FRACTURE OF UNSP LOWER LEG, INIT FOR CLOS FX
--- NOTE | 2023-07-12 10:22 | OP ---
SURGERY DATE/TIME: 07/05/2023 1138 PREOPERATIVE DIAGNOSES: 1) Left ankle bimalleolar fracture equivalent. 2) Syndesmotic dysruption. 3) Left ankle pain. POSTOPERATIVE DIAGNOSES: 1) Left ankle bimalleolar fracture equivalent. 2) Syndesmotic dysruption. 3) Left ankle pain. PROCEDURE: Open reduction internal fixation of left ankle with syndesmotic reduction. SURGEON: Pro John DPM. PICK UP DRIVER: None. ANESTHESIA: General plus a preoperative popliteal and saphenous block to the left lower extremity. See anesthesia report for details. HEMOSTASIS: Thigh tourniquet set to 300 mm of Mercury for approximately 65 total tourniquet minutes. ESTIMATED BLOOD LOSS: Minimal. INJECTABLES: See anesthesia report for details. INDICATION FOR SURGERY: Charles is a very pleasant 52-year-old male who presented to my service after admission for a work injury that resulted in displaced ankle fracture to the left lower extremity. 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 At this time, the patient was splinted in the hospital. All risks, complications and benefits of surgical intervention at this time were discussed with the patient including but not limited to infection, hematoma, seroma, possibility of delayed wound healing, nonwound healing, possibility of neurovascular damage, possible chronic regionalized pain syndrome, possible need for further surgical intervention at a later date. No guarantees were provided as to the surgical outcome. Plenty of time was allowed for the patient to ask questions which were answered to his apparent satisfaction. It is with that we decided to proceed. DESCRIPTION OF PROCEDURE AND FINDINGS: The patient was brought into the postoperative anesthesia care unit prior to the procedure and provided a popliteal and saphenous block. Following this, the patient was brought into the OR and transitioned to the OR table in the supine position. General anesthesia was administered until the patient was adequately sedated. A thigh tourniquet was applied to the patient's left thigh. Based on his blood pressure, the tourniquet was set to 300 mm of Mercury. At that time, the left lower extremity was prepped and draped in the typical sterile fashion and lowered onto the surgical field. At this time, fluoroscopy was brought in to identify the proximal end of the fibula to guide incision placement. At this time, a linear incision was made at the lateral aspect of the leg over the fibula which was carried down to the level of bone. Very quickly the fracture and the hematoma was identified. Dental pick was utilized to clean out the fracture site as well as copious amounts of sterile saline from that standpoint. Butterfly fragment was identified. A 7-hole one-third tubular plate was utilized as decided as the appropriate modality of fixation. A point of reduction forceps as well as lobster claw was utilized to reduce the fracture and the one-third tubular plate was placed fixating at the distal aspect and then fixating at the proximal aspect. For the butterfly fragment, a 2-0 Vicryl was wrapped around the fibula and tied in a simple interrupted-type fashion to hold in place in adequate apposition. For the syndesmosis after assessing was deemed to be out and at that time a point of reduction forceps was utilized to hold adequate position maintaining the tenaculum over the medial malleolus as well as the tibial trochlea this positioned the fibula in the adequate position and two ZipTights were run through the tibia gaining adequate apposition and reducing the syndesmosis. Finals were taken at this point demonstrating ankle mortise with adequate joint space noted on all sides. Copious amounts of sterile saline were utilized to flush the surgical site. 2-0 Vicryl was utilized to coapt the subcutaneous skin edges and 3-0 Nylon was utilized in a horizontal mattress-type fashion. Following this, a dressing consisting of Betadine, Adaptic, 4x4, Kerlix and a well-padded posterior splint with Sugar-Tong was applied to the patients left lower extremity with the foot orthogonal relative to the longitudinal axis of the leg. The patient was then reversed from anesthesia and returned to the postoperative anesthesia care unit with vital signs stable and vascular status intact. The patient handled the anesthesia as well as the procedure without significant complication. Postoperative orders as indicated in the patient's discharge chart.
== END 2023-07-06 15:08 | disposition home or self-care (01) ==
LOC: ED 21:45 → MED SURG 07-05 02:32
PROVIDERS: ADMIT Internal Medicine Nephrology; ATTEND Internal Medicine Nephrology
DX: S82.892A Other fracture of left lower leg, initial encounter for closed fracture (principal); S93.432A Sprain of tibiofibular ligament of left ankle, initial encounter; I10 Essential (primary) hypertension; E78.5 Hyperlipidemia, unspecified; E66.9 Obesity, unspecified; W01.10XA Fall on same level from slipping, tripping and stumbling with subsequent striking against unspecified object, initial encounter; Z79.899 Other long term (current) drug therapy; Z20.828 Contact with and (suspected) exposure to other viral communicable diseases
CPT/HCPCS: 27814; 27829; 36000; 36415; 73590; 73610; 73630; 76000; 76937; 80048; 80307; 81001; 82077; 85027; 85610; 96375; 97161; 97530; 99024; 99285; C1713; G0378; 64450; 76942; J0690; J1644; J1885; J2250; J2270; J2405; J2704; J2795; J3010; A9270-GY